=== PATIENT | male | born 1960 | race Caucasian/White ===

== ENCOUNTER 2017-04-15 18:39 | Emergency (ER) | payer OTHER ==
[~2017-04-15] VITALS: Ht 167.6 cm; Wt 68.0 kg
[2017-04-15 18:49] VITALS: BP 165/86
[2017-04-15] MEDS ORDERED: RIOC2.5T PO (18:55)
[2017-04-15] MEDS ORDERED: AMBR5TAB PO (18:55)
[2017-04-15] MEDS ORDERED: IBUPROFEN 800 MG TAB ONE (19:03)
--- NOTE | 2017-04-15 21:30 | NUR ---
PATIENT LEFT WITHOUT BEING SEEN BY DR. Olivares. NO FURTHER CARE PROVIDED FOR PATIENT.
== END 2017-04-15 21:30 | disposition left against medical advice (07) ==
LOC: MED 18:39
DX: R11.10 Vomiting, unspecified (principal); Z53.21 Procedure and treatment not carried out due to patient leaving prior to being seen by health care provider

== ENCOUNTER 2019-01-11 00:58 | Inpatient (IN) | payer OTHER ==
[2019-01-11] VITALS (79 sets, daily range): BP systolic 101–159; BP diastolic 35–105
[~2019-01-11] VITALS: Ht 167.6 cm; Wt 67.6 kg
[~2019-01-11 00:58] MED LIST: AMBR5TAB PO; RIOC2.5T PO
--- NOTE | 2019-01-11 01:00 | NUR ---
PT ROSIE BLS. TAKEN TO BED 3
--- NOTE | 2019-01-11 01:17 | NUR ---
PT BIBA FOR SOB AND DIFFICULTY BREATHING S/P EATING CHICKEN SANDWHICH AT HOME. PT STATES HE FEELS LIKE SOMETHING IS STUCK IN HIS THROAT. PT COUGHING UP CLEAR SPUTUM. HAS PAIN TO THROAT. PT ABLE TO SPEAK FULL SENTENCES, NO EDEMA IN MOUTH OR THROAT. NO FOREIGN BODY NOTED. NO STRIDOR NOTED. PT 97%RA.
--- NOTE | 2019-01-11 01:29 | NUR ---
Dr. Valentino examining patient.
[2019-01-11] MEDS ORDERED: NACL 0.9% 1,000 ML IV ONE (01:31)
[2019-01-11] MEDS ORDERED: ONDANSETRON 4 MG/2 ML VIAL IVP ONE (01:35)
[2019-01-11] MEDS ORDERED: DEXAMETHASONE 10 MG/ML VIAL IM ONE (01:35)
[2019-01-11] MEDS ORDERED: LORazepam 2 MG/ML VIAL IVP ONE (01:35)
[2019-01-11 02:04] LABS: EOSINOPHILS # (AUTO) 0.1 K/uL (0-0.4); EOSINOPHILS % (AUTO) 2.6 % (0.0-4.0); HEMATOCRIT 39.3 % (36-52); HEMOGLOBIN 12.9 g/dL (12.0-18.0); LYMPHOCYTES % (AUTO) 24.8 % (20.5-51.1); MEAN CORPUSCULAR HEMOGLOBIN 35 pg (27-31); MEAN CORPUSCULAR HGB CONC 33 g/dL (33-37); MEAN CORPUSCULAR VOLUME 105.7 fL (80-94); MONOCYTES # (AUTO) 0.5 K/uL (0.8-1.0); MONOCYTES % (AUTO) 12.9 % (1.7-9.3); NEUTROPHILS # (AUTO) 2.4 K/uL (1.8-7.7); NEUTROPHILS % (AUTO) 58.7 % (42.2-75.2); PLATELET COUNT (AUTO) 129 K/uL (140-450); RED BLOOD CELL COUNT(AUTO) 3.71 MIL/uL (4.20-6.10); RED CELL DISTRIBUTION WIDTH 14.4 % (11.6-13.7); WHITE BLOOD COUNT (AUTO) 4.1 K/uL (4.8-10.8)
[2019-01-11 02:16] LABS: ANION GAP 13.2 (8-16); CARBON DIOXIDE 24.8 mmol/L (21-32); CREATININE 1.2 mg/dL (0.7-1.3)
--- NOTE | 2019-01-11 02:19 | NUR ---
pt moved to bed #10
[2019-01-11] MEDS ORDERED: methylPREDNISolone SS 125 MG in WATER STERILE 2 ML IV ONE (02:20)
[2019-01-11] MEDS ORDERED: EPINEPHrine 1:1000 - 1 MG/ML AMP SUBQ ONE (02:20)
[2019-01-11 02:21] LABS: ALBUMIN 3.5 g/dL (3.4-5.0); TOTAL BILIRUBIN 2.3 mg/dL (0.0-1.0)
--- NOTE | 2019-01-11 02:31 | NUR ---
Respiratory Therapist at bedside for respiratory intervention.
--- NOTE | 2019-01-11 02:38 | NUR ---
DR. LUCAS AT PT BEDSIDE ORDERED FOR INTUBATION, PT AWAKE, RR LABORED, PT GIVEN ETOMIDATE 20MG IVP AT THIS TIME. VS FOLLOWS: BP 144/90, P 92, R 23, T 97.0, O2SAT 84% NON-REBREATHER MASK. WILL CONTINUE TO MONITOR CLOSELY.
--- NOTE | 2019-01-11 02:40 | NUR ---
DR. LUCAS AT BEDSIDE ORDERED FOR SUCCINYLCHOLINE 200MG IVP TO BE GIVEN AT THIS TIME.
[2019-01-11] MEDS ORDERED: PROPOFOL 1000 MG/100 ML PREMIX 100 ML IV ONE ×2 (02:46→02:55)
[2019-01-11] MEDS ORDERED: fentaNYL 0.05 MG/ML VIAL ONE ×3 (02:47→11:29)
[2019-01-11] MEDS ORDERED: fentaNYL 0.05 MG/ML VIAL IVP ONE (02:55)
--- NOTE | 2019-01-11 02:55 | NUR ---
PT MOVING, ATTEMPTING TO GRAB ET, IV TUBES. EDMD WITH ORDERS FOR PROPOFOL STARTED AT 5MCG. PT VS FOLLOWS: BP 167/102, P 92, R 14, T 97.3, O2SAST 89%. ET CONNECTED TO VENT, WILL CONTINUE TO MONITOR CLOSELY.
--- NOTE | 2019-01-11 02:56 | NUR ---
0245 INTUBATED PATIENT WITH SIZE 8.0 TUBE AT 23 LIP LINE. PLACED ON VENTILATOR ON SETTINGS OF AC 14 VT 450 PEEP 5 FIO2 100%.
--- NOTE | 2019-01-11 03:33 | NUR ---
INSERTED 16 FR GUZMÁN CATHETER. PT TOLERATED PROCEDURE WELL. GOT 250 ML URINE RETURN.
[2019-01-11 03:36] LABS: PROTHROMBIN TIME 10.7 secs (10.8-13.4)
[2019-01-11] MEDS ORDERED: LORazepam 2 MG/ML VIAL ONE (03:38)
--- NOTE | 2019-01-11 03:44 | NUR ---
PT TAKEN TO CT
--- NOTE | 2019-01-11 03:55 | NUR ---
-0305 PT STILL TRYING TO MOVE HANDS AND BLE, PROPOFOL TITRATED TO 7MCG/HR AT THIS TIME. -0325 PT ANXIOUS ATTEMPTING TO TOUCH ET, PROPOFOL TITRATED TO 10MCG/HR. -0330 PROPOFOL TITRATED TO 12MCG/HR PT STILL MOVING BOTH HANDS/BLE -0335 PROPOFOL TITRATED TO 15MGC/HR PT NEED CT SCAN WITH CONTRAST PER MD ORDER, -0340 DR. LUCAS GAVE 30MG BOLUS PROPOFOL AND ORDERED FOR ATIVAN 2MG IVP VS AT FOLLOWS, BP 141/92, P 98, R 23, T 97.3 O2SAT 89%. PT PREP FOR CT, MONITORED CLOSELY. -[address] PROPOFOL TITRATED TO 20MCG AT THIS TIME. PT ATTEMPTING TO MOVE IV TUBES, RT AT BEDSIDE, PT VS FOLLOWS BP 144/98, P 98, R 23, 02SAT 90%, WILL CONTINUE TO MONITOR CLOSELY. -0355 PROPOFOL TITRATED TO 22MCG AT THIS TIME. PT MOVING ALL EXTREMITIES ATTEMPTING TO TOUCH ET, MONITORED CLOSELY.
--- NOTE | 2019-01-11 04:12 | NUR ---
PT RETURN FROM CT
--- NOTE | 2019-01-11 04:20 | NUR ---
TRANSPORTED PATIENT TO CT WITHOUT INCIDENT AT 0320. BAGGED WITH 100% OXYGEN. WILL CONTINUE TO MONITOR.
[2019-01-11] MEDS ORDERED: FURO40TA9 PO (04:27)
--- NOTE | 2019-01-11 04:30 | NUR ---
PT RESTING IN BED, RESPONSIVE TO TACTILE STIMULI, RR EVEN UNLABORED, VS FOLLOWS: T 97.4, P 104, R 23, BP 144/98, O2SAT 90%. WILL CONTINUE TO MONITOR CLOSELY.
[2019-01-11] MEDS ORDERED: CLINDAMYCIN 600 MG in DEXTROSE 5% 50 ML IV ONE (06:00)
--- NOTE | 2019-01-11 06:09 | NUR ---
PT FAMILY CONTACT INFORMATION IS [phone]
[2019-01-11] MEDS ORDERED: CLINDAMYCIN 600 MG/4 ML VIAL ONE (06:10)
[2019-01-11] MEDS ORDERED: cefTRIAXone 1,000 MG VIAL ONE (06:10)
--- NOTE | 2019-01-11 06:10 | NUR ---
REC'D PT ON CARESCAPE VENT SETTINGS AC 14 VT 450 PEEP 5 FIO2 100% ALARMS ON AND AUDIBLE AND AMBU BAG AT HOB, B\S ARE DIMINISHED BILATERALLY, SXN PT LARGE AMT OF BLOODY SECRETIONS CHANGED HMMichelle AND LANE PT IS ORALLY INTUBATED WITH 8.0 ET TUBE SECURED WITH ANCHOR FAST AT 23 CM PT IS SEDATED AND AT 0635 PT MOVED TO ICU 2 AND PLACED BACK ON VENT
--- NOTE | 2019-01-11 06:35 | NUR ---
PATIENT TRANSFERRED TO ICU 2 VIA GURNEY WITHOUT INCIDENTS.
[2019-01-11] MEDS ORDERED: POTASSIUM CHLORIDE 40 MEQ, LIDOCAINE 1% 25 MG in NACL 0.9% 250 ML IV PRN (06:40)
[2019-01-11] MEDS ORDERED: MAGNESIUM OXIDE 400 MG TAB PO PRN (06:40)
[2019-01-11] MEDS ORDERED: ALUMINUM HYD/MAG/SIMETHICONE 30 ML UDC PO PRN (06:40)
[2019-01-11] MEDS ORDERED: cloNIDine 0.1 MG TAB PO PRN (06:40)
[2019-01-11] MEDS ORDERED: guaiFENesin DM 200/20 MG-10 ML 10 ML UDC PO PRN (06:40)
[2019-01-11] MEDS ORDERED: HYDROcodone/APAP 5/325 MG 1 TAB TAB PO PRN ×2 (06:40)
[2019-01-11] MEDS ORDERED: DOCUSATE SODIUM 250 MG GELCAP PO PRN (06:40)
[2019-01-11] MEDS ORDERED: BISACODYL 10 MG SUPP RC PRN (06:40)
[2019-01-11] MEDS ORDERED: MORPHINE SULFATE 2 MG/ML SYR IVP PRN (06:40)
[2019-01-11] MEDS ORDERED: ACETAMINOPHEN 325 MG TAB PO PRN (06:40)
[2019-01-11] MEDS ORDERED: ONDANSETRON 4 MG/2 ML VIAL IVP PRN (06:40)
[2019-01-11] MEDS ORDERED: POTASSIUM CHLORIDE 10 MEQ TABER PO PRN (06:40)
[2019-01-11] MEDS ORDERED: ACETAMINOPHEN 650 MG SUPP RC PRN (06:40)
[2019-01-11] MEDS ORDERED: SODIUM PHOSPHATE 118 ML ENEM RC PRN (06:40)
[2019-01-11] MEDS ORDERED: LORazepam 2 MG/ML VIAL IVP PRN (06:40)
[2019-01-11] MEDS ORDERED: MAG SULF 2000 MG/WATER PREMIX 50 ML IV PRN (06:40)
[2019-01-11] MEDS ORDERED: diphenhydrAMINE 50 MG/ML VIAL IVP PRN (06:40)
--- NOTE | 2019-01-11 06:42 | NUR ---
RECEIVED REPORT FROM ER NURSE FOR CONTINUITY OF CARE, WILL ENDORSE TO AM NURSE. PATIENT ETT TO VENT.
[2019-01-11] MEDS: PROPOFOL 1000 MG/100 ML PREMIX 100 ML IV PRN ×3 (06:45→19:31)
--- NOTE | 2019-01-11 06:50 | NUR ---
PATIENT ADMITTED TO ICU BED 2 UNDER THE CARE OF DR. NGUYEN, BELONGINGS LIST COMPLETED, PT TRANSFERRED TO ICU VIA GURNEY, WITH RN, RT AND EMT PRESENT. BEDSIDE REPORT GIVEN TO OCTAVIANO BRISCOE.
[2019-01-11] MEDS: NACL 0.9% 1,000 ML IV SCH (06:52)
--- NOTE | 2019-01-11 07:15 | NUR ---
RECEIVED BEDSIDE REPORT FROM PIPE SMOKING MACHINE OPERATOR NURSE, PT IS SEDATED, RASS -3, UNABLE TO FOLLOW COMMANDS, VSS, FLACC 0. NO S/S OF DISTRESS, ETT TO VENT WITH AC SETTING FIO2 100, VT 450, R 14, PEEP 5, CLEAR LUNG SOUNDS ARELY, O2 SAT 96%, SR TO ST ON MATH PROFESSOR, CAP REFILL <2 SEC, SOFT ROUND ABDOMEN WITH ACTIVE BOWEL SOUNDS, GUZMÁN CATHETER IN PLACE WITH CLEAR YELLOW URINE VIA GRAVITY, ABLE TO MOVE ALL EXTREMITAS, TRYING TO PULL OUT TUBES SOMETIMES, SKIN IS WARM AND DRY TO TOUCH, IV SITE TO RIGHT AC 18GA, PATENT, RUNNING PROPOFOL AT 22 MCG/KG/MIN, IV TO LEFT FOREARM 20GA, PATENT RUNNING NS AT 50 ML/HR, HOB ELEVATED, SAFETY MEASURES IN PLACE, WILL CONTINUE TO MONITOR. Addendum: 01/11/19 at 1219 by Connor Mancini RN DRY WEIGHT USING FOR PROPOFOL DRIP IS 69 KG ON PUMP.
[2019-01-11] MEDS: IPRATROPIUM 0.02% 0.5 MG/2.5 ML NEBU INH PRN (07:28)
[2019-01-11] MEDS: ALBUTEROL 0.083% 2.5 MG/3 ML NEBU INH PRN (07:29)
--- NOTE | 2019-01-11 07:45 | NUR ---
ORAL CARE PROVIDED, POSITION CHANGED FOR OFF LOAD PRESSURE.
--- NOTE | 2019-01-11 07:55 | NUR ---
PT'S AND FATHER CAME IN TO SEE PATIENT, MEDICAL HISTORY OBTAINED FROM FAMILY MEMBERS.
--- NOTE | 2019-01-11 08:00 | NUR ---
PATIENT IS AWAKE, TRYING TO PULL OUT TUBES, SOFT RESTRAIN PLACED PER DR. WARE ORDER FOR SAFETY. EXPLAINED AND EDUCATED FAMILY MEMBERS.
--- NOTE | 2019-01-11 08:20 | NUR ---
PATIENT HAS BEEN SCREENED AND CATEGORIZED HIGH NUTRITION RISK. PATIENT WILL BE SEEN WITHIN 1-2 DAYS OF ADMISSION. 01/11/19-01/12/[address]
--- NOTE | 2019-01-11 08:30 | NUR ---
DR. WARE CAME IN TO SEE PATIENT AT BEDSIDE, SPOKE TO PT'S FAMILY AT BEDSIDE, WILL DO STAT BRONCHOSCOPY AT BEDSIDE, RT NOTIFIED.
[2019-01-11] MEDS ORDERED: VITAMIN E 200 IU CAPLF PO SCH (09:00)
--- NOTE | 2019-01-11 09:00 | NUR ---
DR. WARE AT BEDSIDE TO BRONCHOSCOPY THE PT, COLLECTED SPUTUM SAMPLE AND SENT TO LAB
--- NOTE | 2019-01-11 09:10 | NUR ---
TIME OUT FOR BRONCHOSCOPY, DR. WARE AND RT AT BEDSIDE DOING THE PROCEDURE.
--- NOTE | 2019-01-11 09:20 | NUR ---
SCHEDULED MEDICATION GIVEN, PT TOLERATED WELL.
[2019-01-11] MEDS: PANTOPRAZOLE 40 MG INJ VIAL IVP SCH (09:25)
[2019-01-11] MEDS: FUROSEMIDE 20 MG/2 ML VIAL IVP SCH ×2 (09:25→20:39)
--- NOTE | 2019-01-11 09:30 | NUR ---
DR. WARE CLARIFIED NO NEED FOR PICC LINE OR CENTRAL LINE AT THIS TIME, OK TO PUT NGT/OGT, BUT NPO EXCEPT MEDS, NO NEED TUBE FEEDING AT THIS TIME, CONSULT GI FOR EGD.
--- NOTE | 2019-01-11 10:00 | NUR ---
NO CHANGE OF CONDITION, VSS, FLACC 0, NO S/S OF DISTRESS, POSITION CHANGED FOR OFF LOAD PRESSURE.
[2019-01-11] MEDS ORDERED: MIDAZOLAM 2 MG/2 ML VIAL ONE (11:30)
[2019-01-11] MEDS ORDERED: diphenhydrAMINE 50 MG/ML VIAL ONE (11:30)
--- NOTE | 2019-01-11 12:00 | NUR ---
DR. THOMAS AND SURGERY TEAM AT BEDSIDE DOING EGD.
--- NOTE | 2019-01-11 12:15 | NUR ---
NO S/S OF DISTRESS, VSS, FLACC 0, ORAL CARE PROVIDED, POSITION CHANGED FOR OFF LOAD PRESSURE.
--- NOTE | 2019-01-11 12:30 | NUR ---
PT IS AGITATED WHEN TRYING TO INSERT NGT, PER DR. WARE OK TO NOT INSERT NGT MAY BE EXTUBATED LATER.
--- NOTE | 2019-01-11 13:00 | NUR ---
DECREASED FIO2 TO 50%
--- NOTE | 2019-01-11 14:00 | NUR ---
O2 SAT DROP TO 89%, RT NOTIFIED, POSITION CHANGED FOR OFF LOAD PRESSURE.
[2019-01-11 14:31] LABS: APPEARANCE,URINE CLEAR (CLEAR); BILIRUBIN,URINE NEGATIVE (NEGATIVE); BLOOD, URINE 3+ (NEGATIVE); COLOR,URINE OTHER (YELLOW); LEUKOCYTE ESTERASE ,URINE NEGATIVE (NEGATIVE); NITRITE, URINE NEGATIVE (NEGATIVE); PH,URINE 5.5 (5.0-9.0); UGLUCOSE NEGATIVE (NEGATIVE)
[2019-01-11 14:40] LABS: RBC,URINE 11-20 (MOD) /HPF (0-5); WBC,URINE NONE SEEN /HPF (0-5); YEAST,URINE None Seen /HPF (None Seen)
--- NOTE | 2019-01-11 14:53 | NUR ---
increased fio2 to 70% due to low o2 sat of 85% mike leon notified
--- NOTE | 2019-01-11 15:11 | NUR ---
01/11/19 RD INITIAL ASSESSMENT COMPLETED PLEASE REFER TO NUTRITION ASSESSMENT UNDER CARE ACTIVITY FOR ESTIMATED NUTRITIONAL NEEDS. 1. CONTINUE NPO MEDICALLY NECESSARY 2. RECOMMEND SWALLOW EVALUATION WHEN PATIENT IS MEDICALLY STABLE TO ADVANCE TO PO DIET 3. IF PATIENT IS NOT MEDICALLY STABLE TO ADVANCE TO PO DIET, CONSIDER TUBE FEEDING WITH JEVITY @65 ML/HR AND PROSOURCE ONCE DAILY. FREE WATER FLUSH [address] TO FOLLOW-UP 2-3 DAYS, HIGH RISK CHANDRIKA COLLIER RD
--- NOTE | 2019-01-11 16:00 | NUR ---
PM CARE AND ORAL CARE PROVIDED, GUZMÁN CATHETER PROVIDED, NO S/S OF DISTRESS, VSS, FLACC 0, POSITION CHANGED FOR OFF LOAD PRESSURE.
--- NOTE | 2019-01-11 17:15 | NUR ---
DR. GALVAN CAME IN TO SEE PATIENT AT BEDSIDE, WILL FOLLOW UP WITH NEW ORDERS. Addendum: 01/11/19 at 1722 by Connor Mancini RN WRONG PATIENT
--- NOTE | 2019-01-11 18:00 | NUR ---
ON FIO2 60% AT THIS TIME, NO S/S OF DISTRESS, VSS, FLACC 0, SCD PLACED ORDERED, POSITION CHANGED FOR OFF LOAD PRESSURE.
--- NOTE | 2019-01-11 19:15 | NUR ---
REPORT GIVEN BY DAY SHIFT NURSE AT BEDSIDE. PATIENT LYING IN BED ETT TO VENT SIZE 8. 24 AT LIP. SEDATED ON PROPOFOL 25 MCG VIA PERIPHERAL RIGHT AC 20 G. IVF NACL 0.9% RUNNING IN LEFT FA 20 G. DRY WEIGHT 69 KG. PATIENT RASS -3. DAY NURSE STATES MD WANTS TO EXTUBATE SO NO NEED FOR ng TUBE. NO PO MEDS ORDERED AND NO NUTRITION ORDERED VIA NG TUBE. DAY NURSE ALSO STATES MD DOES NOT WANT PICC OR CENTRAL LINE DUE TO WANTING TO EXTUBATE (CHAZ). PATIENT HAS SCDS IN PLACE. GUZMÁN CATHETER IN PLACE WITH YELLOW URINE RUNNING IN DRAINAGE BAG. PATIENT ON SOFT WRIST RESTRAINTS AT THIS TIME. FIO2 60-VT 450-RR 14-FLOW 45- PEEP 5- PMAX 50 AT THIS TIME. IV SITES ASYMPT OF INFECTION AND INTACT AT THIS TIME. NPO EXCEPT MEDS. PERRL BOTH EYES BILATERALLY. HR REGULAR. LUNG SOUNDS CLEAR. RESPIRATIONS EVEN AND UNLABORED. SKIN INTACT. RT AT BEDSIDE. PATIENT SEDATED/ NO SOB NOTED. VSS. WILL CONTINUE TO MONITOR.
--- NOTE | 2019-01-11 19:30 | NUR ---
REPORT GIVEN TO STAFF COMBAT INFORMATION CENTER OFFICER NURSE AT BEDSIDE FOR CONTINUE OF CARE.
--- NOTE | 2019-01-11 19:39 | NUR ---
Received pt stable on vent support at documented settings, suctioned scant amount of thin clear white secretions, no resp distress or SOB noted at this time, found 8.0 ETT secured at 24 cm at the lip, alarms set and audible, ambu bag at bedside, vent plugged into red outlet, cont pulse ox on, ventilator wiped down, will cont to monitor.
--- NOTE | 2019-01-11 22:22 | NUR ---
CHARGE NURSE AND NURSE AT PATIENT BEDSIDE. CHANGE IN PROPOFOL. SEE IV SPREAD SHEET
[2019-01-12] VITALS (54 sets, daily range): BP systolic 99–139; BP diastolic 52–87
--- NOTE | 2019-01-12 | NUR ---
VAP ORAL CARE PROVIDED. PATIENT REPOSITIONED. NO SOB O S/S OF RESP DISTRESS. WILL CONTINUE TO MONITOR
--- NOTE | 2019-01-12 01:18 | NUR ---
md tisha louise AT PATIENTS BEDSIDE. STATES NEEDS HIS AT HOME MEDICATIONS TO BE BROUGHT BY FAMILY AND AT LEAST ONE DOSE GIVEN TO PATIENT BEFORE HE IS EXTUBATED. AMBRSENTAN 5MG DAILY AND RIOCIGUAT 2.5 MG PO TID. STATES MAY USE AT HOME MEDICATIONS. MD AT PATIENT BEDSIDE.
[2019-01-12] MEDS: NACL 0.9% 1,000 ML IV SCH ×2 (02:08→20:57)
[2019-01-12] MEDS: PROPOFOL 1000 MG/100 ML PREMIX 100 ML IV PRN ×2 (02:17→08:50)
--- NOTE | 2019-01-12 03:34 | NUR ---
VAP ORAL CARE PROVIDED. PATIENT TOLERATED WELL. NO S/S OF RESP DISTRESS NOTED. WILL CONTINUE TO MONITOR
--- NOTE | 2019-01-12 04:56 | NUR ---
MORNING CARE PROVIDED WITH NURSE, CHARGE NURSE AND MANUFACTURING MILLWRIGHT. CATHETER CARE, ORAL CARE AND REPOSITIONING CARE PROVIDED. INTACT SKIN. NO INCIDENTS. WILL CONTINUE TO MONITOR. TOLERATED WELL.
--- NOTE | 2019-01-12 05:58 | NUR ---
FAMILY CALLED BY CHARGE NURSE IN REGARDS TO BRINGING PATIENTS AT HOME MEDICATION. LEFT MESSAGE.
--- NOTE | 2019-01-12 06:30 | NUR ---
phone call to torsten cooper/kamlesh cooper regarding medication, no answer, left message to call health science writer. awaiting reply
[2019-01-12 06:44] LABS: ALBUMIN 3.1 g/dL (3.4-5.0); ANION GAP 12.7 (8-16); CARBON DIOXIDE 24.7 mmol/L (21-32); CREATININE 1.3 mg/dL (0.7-1.3); POTASSIUM 4.4 mmol/L (3.5-5.1); TOTAL BILIRUBIN 1.4 mg/dL (0.0-1.0)
[2019-01-12 07:11] LABS: BASOPHILS % (AUTO) 0.1 % (0.0-2.0); HEMOGLOBIN 13.3 g/dL (12.0-18.0); LYMPHOCYTES # (AUTO) 0.9 K/uL (2.0-11.5); LYMPHOCYTES % (AUTO) 11.1 % (20.5-51.1); MEAN CORPUSCULAR HEMOGLOBIN 36 pg (27-31); MEAN CORPUSCULAR HGB CONC 33 g/dL (33-37); MONOCYTES # (AUTO) 0.8 K/uL (0.8-1.0); MONOCYTES % (AUTO) 10.2 % (1.7-9.3); NEUTROPHILS # (AUTO) 6.2 K/uL (1.8-7.7); NEUTROPHILS % (AUTO) 78.6 % (42.2-75.2); PLATELET COUNT (AUTO) 169 K/uL (140-450); RED BLOOD CELL COUNT(AUTO) 3.74 MIL/uL (4.20-6.10); RED CELL DISTRIBUTION WIDTH 14.8 % (11.6-13.7); WHITE BLOOD COUNT (AUTO) 7.8 K/uL (4.8-10.8)
--- NOTE | 2019-01-12 07:13 | NUR ---
RECEIVED ON A [employer]uataSCAPE R860 VENTILATOR PLUGGED INTO RED OUTLET TOLERATING WELL WITHOUT ADVERSE REACTIOSN NOTED TO AN ENDOTRACHEAL TUBE #8.0 SECURED AT 23cm TEETH/GUM LINE WITH ANCHOR FAST CUFF PRESSURE CHECKED NOTED LOC SEDATED EQUAL CHEST RISE BREATH SOUNDS CLEAR WITH GOOD AERATION THROUGHOUT BILATERAL PULMONARY ARMSTRONG AIRWAY PATENT
--- NOTE | 2019-01-12 07:15 | NUR ---
RECEIVED BEDSIDE REPORT FROM CUSTOMER SERVICE SUPERVISOR OCTAVIANO AGUILA. PATIENT IN BED ETT TO VENT SIZE 8, 24CM AT TEETH. IV CATH NOTED TO LEFT FA 20G RUNNING NS AT 50ML/HR AND RIGHT AC 18G RUNNING PROPOFOL AT 30MCG/KG/MIN, DRY WEIGHT 69 KG. BOTH IV CATH ARE PATENT AND ASYMPTOMATIC WITH GOOD BLOOD RETURN. RASS -3. SCDS IN PLACE. GUZMÁN CATHETER IN PLACE DRAINING CLEAR YELLOW URINE. PT ON SOFT WRIST RESTRAINTS AT THIS TIME, NO SIGNS OF INJURY. LUNG SOUNDS CLEAR. RESPIRATIONS EVEN AND UNLABORED. SKIN INTACT. BOWEL SOUNDS ACTIVE. WILL CONTINUE TO MONITOR.
[2019-01-12] MEDS ORDERED: POTA10TE30 PO (07:49)
[2019-01-12] MEDS: PANTOPRAZOLE 40 MG INJ VIAL IVP SCH (08:25)
[2019-01-12] MEDS: FUROSEMIDE 20 MG/2 ML VIAL IVP SCH ×2 (08:28→20:52)
[2019-01-12] MEDS: LETAIRIS 5 MG PO SCH (09:00)
[2019-01-12] MEDS ORDERED: COMMUNICATION ORDER MC SCH (09:00)
--- NOTE | 2019-01-12 09:00 | NUR ---
WONDERING IF CAN GIVE PO MED VIA NGT. CALLED [facility], WHO SAID LETAIRIS IS NOT CRUSHABLE.
--- NOTE | 2019-01-12 09:03 | NUR ---
PAGED DR SAROJ WARE, REGARDING HOW HE WANTS THE PT TO TAKE HIS PO MEDS SINCE PT IS INTUBATED AND LETAIRIS SHOULD NOT BE CRUSHED. WAITING FOR BACK.
--- NOTE | 2019-01-12 09:05 | NUR ---
SEDATED RESTING COMFORTABLY NO EVIDECNE OF PULMONARY DISTRESS NOTED GOOD CHEST RISE AIRWAY PATENT Addendum: 01/12/19 at 0920 by Odin France RT SATURATION 95% ON FIO2 OF 30% TITRATED FIO2 TO 28% PRUDENCE/RN NOTIFIED Addendum: 01/12/19 at 1019 by Odin France RT EVIDECNE=EVIDENCE
--- NOTE | 2019-01-12 09:28 | NUR ---
PAGED DR WARE SECOND TIME.
--- NOTE | 2019-01-12 09:36 | NUR ---
DR WARE CALLED BACK, SAID TO PUT NGT AND ONLY GIVE THE ADEMPAS, THEN START WEANING 1 HR LATER. Addendum: 01/12/19 at 1025 by Alexander Petit RN DR WARE SAID IF PT TOLERATED, EXTUBATED TODAY. ALSO ASKED DR WARE AFTER EXTUBATION, IF SWALLOW EVAL IS NEEDED FOR TOMORROW. DR WARE SAID NO, WHY WAIT FOR TOMORROW. TOLD DR WARE WILL DO BEDSIDE SWALLOW EVAL TODAY AND TRY TO GET ST TO COME TODAY.
[2019-01-12] MEDS: RIOCIGUAT 2.5 MG PO SCH ×3 (09:49→17:41)
--- NOTE | 2019-01-12 10:02 | NUR ---
OFF PROPOFOL SEDATION AT THIS TIME APPROPRIATE FOR WEANING NO RESPIRATORY DISTRESS NOTED EQUAL CHEST RISE PLACED ON SBT/WEANING TRIAL SET FOR 2 HOURS PATIENT UNABLE TO FOLLOW COMMANDS AT THIS TIME FOR WEANING PARAMETERS PRUDENCE/RN AWARE
--- NOTE | 2019-01-12 10:02 | NUR ---
RT BLOOM STARTED CPAP TRIAL. TURNED OFF PROPOFOL.
--- NOTE | 2019-01-12 10:40 | NUR ---
PT OPENING HIS EYES, MAKING EYE CONTACT, PT APPEARS TO BE A LITTLE AGITATED. PROVIDED PT WITH PAPER AND PEN. PT WROTE HOME, OUT. ORIENTED PT AND EXPLAINED TO HIM ABOUT THE CURRENT SITUATION. ASKED PT NOT TO PULL TUBES OUT HIMSELF IT MIGHT CAUSE INJURY. PT NODDED.
--- NOTE | 2019-01-12 10:45 | NUR ---
REORIENTED PT AGAIN.
--- NOTE | 2019-01-12 10:55 | NUR ---
PT HAS HIS EYES CLOSED. NO SIGNS OF DISTRESS.
--- NOTE | 2019-01-12 11:01 | NUR ---
SATURATION 89%-90% ON FIO2 OF 28% INCREASED FIO2 TO 30% TO KEEP SATURATION GREATER THAN 90%
--- NOTE | 2019-01-12 11:10 | NUR ---
PT GOT AGITATED, TRYING TO SIT UP AND REMOVE TUBE. REORIENTED PT AND SUCTIONED PT ORALLY. PT IS FIGHTING THE VENT AND WENT BACK TO AC MODE. CALLED RT MERLE AND MADE HIM AWARE, WILL SWITCH BACK TO CPAP TRIAL.
--- NOTE | 2019-01-12 11:45 | NUR ---
[facility], SAID SHE CAN'T DO IT TODAY BECAUSE IT NEEDS TO BE DONE 24HRS AFTER EXTUBATION. SHE WILL HAVE HER COLLEAGUE TO DO IT TOMORROW.
--- NOTE | 2019-01-12 11:49 | NUR ---
TOLERATING SBT/WEANING TRIAL WELL WITHOUT SOB NOTED GOOD CHEST RISE PATIENT ABLE TO WAKE TO PARTICIPATE IN WEANING TRIAL TITRATED PS TO 8 cmH2O Addendum: 01/12/19 at 1159 by Odin France RT SpvVT GREATER THAN 8 CC/KG
--- NOTE | 2019-01-12 12:08 | NUR ---
TOLERATED SBT/WEANING TRIAL X 2 HOURS NO RESPIRATORY DISTRESS NOTED GOOD CHEST RISE AIRWAY PATENT
--- NOTE | 2019-01-12 12:16 | NUR ---
PHOTONICS TECHNICIAN note 12:15. PHOTONICS TECHNICIAN came to assess pt's appropriateness for bedside swallow evaluation participation; however, pt currently still intubated at this time. PHOTONICS TECHNICIAN d/w RN (Alexander) and charge auditor that pt's risk for SILENT aspiration is the greatest during the first 24 hours following extubation and per PHOTONICS TECHNICIAN protocol, pt will not be assessed until 24 hours following extubation have elapsed. Per RN, pt with pending extubation later today. PHOTONICS TECHNICIAN to f/u after 24 hours following extubation have elapsed, as appropriate.
--- NOTE | 2019-01-12 12:38 | NUR ---
CALL BACK FROM DR. SAROJ WARE REVIEWED SBT/CPAP WEANING TRIAL OUTCOME (IE: SPVT,RATE,WEANING PARAMETERS,CXR) AND ABG SAMPLE REPORT INFORMED MD THAT THE ABG IS A MIXED SAMPLE REPORT SATURATION 85.7% MONITOR 90%-91% NEW ORDERS: EXTUBATE PATIENT; INCENTIVE SPIROMETRY
--- NOTE | 2019-01-12 12:39 | NUR ---
SPOKE WITH DR WARE, ORDERS OBTAINED, DC NGT, [facility] SOFT DIET FOR DINNER.
--- NOTE | 2019-01-12 12:48 | NUR ---
SCREEN FOR LOW CAROL SCALE AT RISK, CONTINUE TO FOLLOW PRESSURE ULCER PREVENTION INTERVENTIONS. -TURN AND REPOSITION PATIENT Q 2H -ASSESS AND MONITOR SKIN CONDITION DURING POSITION CHANGE -OFFLOAD BILATERAL HEELS BY PLACING PILLOWS UNDER CALVES AT ALL TIMES, UNLESS OTHERWISE CONTRAINDICATED -PRESSURE REDISTRIBUTION BY PLACING PILLOWS AND OFFLOADING SACRALCOCCYX -KEEP SKIN CLEAN AND DRY AT ALL TIMES.
--- NOTE | 2019-01-12 12:59 | NUR ---
EXTUBATION PATIENT PLACED ON SUPPLEMENTAL OXYGEN VIA COOL AEROSOL AT 30% TO MASK TO PREVENT LARYNGEAL SWELLING PRUDENCE/RN AT BEDSIDE
--- NOTE | 2019-01-12 13:30 | NUR ---
NGT WAS DC'D. PT TOLERATED WELL. PT SAID HE WANTS BEER AND GO HOME. EXPLAINED TO PT THAT HE NEEDS TO STAY FOR TONIGHT UNTIL DR WARE SEES HIM, SO HE CAN BE DISCHARGED. IF HE LEAVES BY HIMSELF, THERE MIGHT BE LIFE THREATENING CONSEQUENCE. PT WENT BACK TO SLEEP.
--- NOTE | 2019-01-12 14:45 | NUR ---
PT DESATING TO 85%, WOKE PT UP AND CALLED RT, MERLE SAID TO TURNED FIO2 TO 40%. ADJUST AEROSOL TO 40%. ASKED PT TO COUGH AND CLEAR THROAT. PT FOLLOWED COMMANDS. O2 SAT WENT BACK TO 88%-90%.
--- NOTE | 2019-01-12 15:00 | NUR ---
PT WANTS TO GO HOME AGAIN. OFFERED ICE CREAM. BEDSIDE SWALLOW EVAL DONE BY NURSE. PT WAS ABLE TO SWALLOW WELL, NO COUGH OR CHOKING SEEN.
--- NOTE | 2019-01-12 15:10 | NUR ---
PT'S DAD, JEREMY, CAME AND TALKED TO PT ABOUT STAYING FOR TONIGHT. PT AGREED. ASKED JEREMY IF PT STILL SMOKE. JEREMY SAID YES, BUT NOT MUCH BEFORE. PT WENT BACK TO SLEEP. NO DISTRESS AT THIS TIME. O2 SAT 89%-90%.
--- NOTE | 2019-01-12 15:24 | NUR ---
O2 SAT 93%, LOWERED AEROSOL MASK FIO2 TO 30%. PT STILL TOLERATING, O2 SAT 90%.
[2019-01-12] MEDS: IPRATROPIUM 0.02% 0.5 MG/2.5 ML NEBU INH PRN (16:08)
[2019-01-12] MEDS: ALBUTEROL 0.083% 2.5 MG/3 ML NEBU INH PRN (16:08)
--- NOTE | 2019-01-12 16:08 | NUR ---
PATIENT PRESENTING WITH LABORED BREATHING RESPIRATIONS AT 24 BPM BREATH SOUNDS DIFFUSED RHONCHI BILATERAL SATURATION 90% ON SUPPLEMENTAL OXYGEN AT 30%/7 LPM VIA COOL AEROSOL TO MASK HHN PRN THERAPY AND RESPIRATORY DRUGS GIVEN AT THIS TIME ENCOURAGED PATIENT FOR INTERMITTENT DEEP BREATHING AND COUGH OROPHARYNGEAL SUCTION FOR MODERATE THIN PALE YELLOW SECRETIONS
--- NOTE | 2019-01-12 16:22 | NUR ---
Blow Mold Technician Note: I called and spoke with patient's Josef Perry . Per Josef, he has had good communication with attending MD. He does not have any questions nor concerns at this time. I provided him with my contact information.
--- NOTE | 2019-01-12 16:41 | NUR ---
CONTACTED PATIENT'S PCP DR. SOBIA MENDOZA ([facility]) AT [phone], ABLE TO SPEAK TO JOSS REGARDING POST DISCHARGE APPOINTMENT. SHE PROVIDED ME WITH Jan AT 0920 AM. COPY PROVIDED TO THE PATIENT.
[2019-01-12] MEDS ORDERED: CHLORHEXADINE GLUC 2% CLOTH TP SCH (17:00)
[2019-01-12] MEDS ORDERED: MUPIROCIN CA NASAL 2% 1GM TUBE NS SCH (17:00)
--- NOTE | 2019-01-12 17:01 | NUR ---
MRSA NARES POSITIVE, CONTACT ISOLATION PROTOCOL INITIATED.
--- NOTE | 2019-01-12 17:05 | NUR ---
PT SLEEPING, NO S/S OF DISTRESS NOTED. O2 SAT 90%,
--- NOTE | 2019-01-12 17:25 | NUR ---
WOKE PT UP TO EAT DINNER. ASKED PT TO SIT IN THE CHAIR TO EAT AND I CAN CHANGE HIS LINENS AT THE MEAN TIME. PT REFUSED. PT SAID JUST ME THE F TRAY. PT ATE 90% OF THE MEAL INDEPENDENTLY. STANDBY ASSIST PROVIDED. NO SIGN OF COUGH OR DISTRESS.
--- NOTE | 2019-01-12 18:00 | NUR ---
SCHEDULED MEDS HAS BEEN GIVEN, WIPED PT WITH CHLORHEXIDINE WIPES. PT WENT BACK TO SLEEP, PUT AEROSOL MASK BACK ON, FIO2 30%.
--- NOTE | 2019-01-12 19:20 | NUR ---
RECEIVED REPORT FROM AM NURSE, PT IS AT BED, EYES CLOSED, BREATHING REGULARLY, PERRL 3MM, PT IS ON AEROSOL MIST MASK AT 30%, LUNG SOUNDS CLEAR THROUGHOUT, HEART RATE REGULAR, SR ON MONITOR, S1S2 PRESENT, CAP REFILL <3S, PULSES 2+ BILATERAL UPPER AND LOWER EXTREMITIES, PT SKIN INTACT, COLOR APPROPRIATE TO ETHNICITY, WARM, DRY, ABDOMEN, SOFT, ROUND, NONTENDER, BLADDER, SOFT, ROUND, NONTENDER, FC IN PLACE, DRAINING YELLOW URINE, PT HAS GENERALIZED WEAKNESS, HOB AT 30 DEGREES, SIDE RAILS UP X2, BED AT LOWEST POSITION. PT LEFT FA 20 GAUGE, RUNNING NS AT 50 ML/HR, RIGHT AC 18 GAUGE SALINE LOCK.
--- NOTE | 2019-01-12 20:52 | NUR ---
SCHEDULED MEDICATIONS GIVEN. PT AT BED EYES CLOSED, BREATHING REGULARLY, WILL CONTINUE TO MONITOR.
[2019-01-13] VITALS (8 sets, daily range): BP systolic 106–156; BP diastolic 63–96
--- NOTE | 2019-01-13 01:29 | NUR ---
PT AT BED EYES CLOSED, BREATHING REGULARLY ON AEROSOL MIST, MASK, WILL CONTINUE TO MONITOR.
--- NOTE | 2019-01-13 03:27 | NUR ---
PT AT BED EYES CLOSED, BREATHING REGULARLY ON AEROSOL MIST, MASK, WILL CONTINUE TO MONITOR.
--- NOTE | 2019-01-13 04:43 | NUR ---
PT IS RESTLESS AND HAVING ANXIETY. DEMANDS TO GO HOME RIGHT NOW. ADMINISTERED ATIVAN IVP.
--- NOTE | 2019-01-13 07:11 | NUR ---
RCV'D PT ON ROOM AIR WITH SPO2 91-93%. PT IS ASLEEP. PER RN PT DOES NOT WANT TO KEEP OXYGEN MASK ON. NO SOB OR DISTRESS NOTED. WILL CONTINUE TO MONITOR.
--- NOTE | 2019-01-13 07:18 | NUR ---
CHANGE OF SHIFT REPORT GIVEN TO AM NURSE. PT AT STABLE CONDITION AT THIS TIME.
--- NOTE | 2019-01-13 07:30 | NUR ---
RECEIVED BEDSIDE REPORT FROM AIRPLANE DESIGNER RN. PT IS ASLEEP, VSS, FLACC 0, PERRL. AFEBRILE. NORMAL SINUS RHYTHM ON MONITOR. S1 +S2 HEARD. PULSES PALPABLE TO ALL EXTREMITIES. CAP REFILL < 2SEC. PT IS ON ROOM AIR AT THIS TIME. SPO2 92-93%. BREATHING EVEN AND UNLABORED. LUNGS SOUND CLEAR THROUGHOUT. ABDOMEN SOFT, NONDISTENDED, NONTENDER. BOWEL SOUNDS PRESENT X 4 QUADRANTS. PERIPHERAL IV G20 TO LEFT FOREARM PATENT, INTACT, RUNNING IVF NS AT 50 ML/HR. ANOTHER PERIPHERAL IV G18 TO RIGHT ANTECUBITAL ASYMPTOMATIC, PATENT AND INTACT, SALINE LOCKED. GUZMÁN CATH IN PLACE DRAINING CLEAR YELLOW URINE TO GRAVITY DRAINAGE BAG. SKIN IS INTACT, DRY AND WARM TO TOUCH. HOB AT 30 DEGREES. BED IN LOWEST POSITION LOCKED. SIDE RAILS UP X2. CALL LIGHT WITHIN REACH. NO SIGNS OF DISTRESS NOTED AT THIS TIME. SAFETY PRECAUTIONS IN PLACE. WILL CONTINUE TO MONITOR.
[2019-01-13] MEDS: FUROSEMIDE 20 MG/2 ML VIAL IVP SCH (08:09)
[2019-01-13] MEDS: PANTOPRAZOLE 40 MG INJ VIAL IVP SCH (08:09)
[2019-01-13] MEDS: LETAIRIS 5 MG PO SCH (08:10)
[2019-01-13] MEDS: RIOCIGUAT 2.5 MG PO SCH ×2 (08:10→13:00)
--- NOTE | 2019-01-13 08:30 | NUR ---
MEDICATIONS ADMINISTERED ORDERED. PT TOLERATED WELL.
--- NOTE | 2019-01-13 09:44 | NUR ---
SPEECH THERAPIST AT BEDSIDE FOR SWALLOW EVALUATION. VSS. NO SIGNS OF DISTRESS NOTED AT THIS TIME. WILL CONTINUE TO MONITOR.
--- NOTE | 2019-01-13 10:03 | NUR ---
RECEIVED CALL FROM PT'S FATHER, JEREMY. UPDATES GIVEN ON PT'S CONDITION.
--- NOTE | 2019-01-13 10:23 | NUR ---
*S.T. Bedside swallow eval completed* See report for details. Pt presents w/ adequate oropharyngeal swallow function for current diet textures of mechanical soft solids and thin liquids via straw. No overt s/s aspiration observed and pt able to self-feed w/ min assistance for opening packaging and tray set up. Recommend: 1) Continue mechanical soft diet, thin liquids. Straws okay. 2) P.O. meds okay whole, one at a time. 3) Defer to medicine team for dietary restrictions. 4) Nsg to assist w/ tray set up and opening packaging to promote self-feeding. Pt does not demonstrate clinical dysphagia. Therefore, recommend DC to nsg care. No further tx indicated at this time. Endorsed to OCTAVIANO Curtis at bedside. Time [id number]
--- NOTE | 2019-01-13 11:50 | NUR ---
DR. WARE IN TO SEE AND EXAMINE PT. WILL FOLLOW UP ON ORDERS.
[2019-01-13] MEDS ORDERED: RIOCIGUAT 2.5 MG PO SCH (13:00)
--- NOTE | 2019-01-13 13:30 | NUR ---
PT DISCHARGED HOME VIA PRIVATE VEHICLE ACCOMPANIED BY FATHER. PER PHARMACIST, FLU VACCINE NOT IN SEASON OF TODAY. INSTRUCTED PT TO HAVE FLU SHOT AT HIS FOLLOW UP APPOINTMENT SCHEDULED ON 01/17/2019. DISCHARGE INSTRUCTIONS AND EDUCATION GIVEN. PT AND FATHER VERBALIZED UNDERSTANDING. VSS. DENIES PAIN AND NO SIGNS OF DISTRESS NOTED UPON DISCHARGE.
[2019-01-13] MEDS ORDERED: FUROSEMIDE 40 MG TAB PO SCH (17:00)
[2019-01-14] MEDS ORDERED: AMBRISENTAN 5 MG PO SCH (09:00)
--- NOTE | 2019-01-18 06:15 | NUR ---
LATE ENTRY: 1MG OF ATIVAN GIVEN, PER MD ORDER (RX#: [id number]). 1MG WASTED AT [facility], WITNESSED BY JEREMY ZURITA RN.
== END 2019-01-13 13:30 | disposition home or self-care (01) | DRG 133 ==
LOC: MED 00:58 → MIC 06:08
PROVIDERS: ADMIT Internal Medicine Pulmonary Disease; ATTEND Internal Medicine Pulmonary Disease
PROC: 5A1945Z Respiratory Ventilation, 24-96 Consecutive Hours (ICD-10-PCS; 2019-01-11)
PROC: 0DC58ZZ Extirpation of Matter from Esophagus, Via Natural or Artificial Opening Endoscopic (ICD-10-PCS; 2019-01-11)
PROC: 0BH17EZ Insertion of Endotracheal Airway into Trachea, Via Natural or Artificial Opening (ICD-10-PCS; 2019-01-11)
PROC: 0BJ08ZZ Inspection of Tracheobronchial Tree, Via Natural or Artificial Opening Endoscopic (ICD-10-PCS; principal; 2019-01-11 11:30)
DX: J96.21 Acute and chronic respiratory failure with hypoxia (principal); I27.29 Other secondary pulmonary hypertension; I50.810 Right heart failure, unspecified; K70.9 Alcoholic liver disease, unspecified; K22.2 Esophageal obstruction; T18.128A Food in esophagus causing other injury, initial encounter; K74.60 Unspecified cirrhosis of liver; K44.9 Diaphragmatic hernia without obstruction or gangrene; K31.89 Other diseases of stomach and duodenum; X58.XXXA Exposure to other specified factors, initial encounter; Z87.891 Personal history of nicotine dependence; Y93.89 Activity, other specified; Y92.89 Other specified places as the place of occurrence of the external cause; Y99.8 Other external cause status
CPT/HCPCS: 36415; 36600; 71045; 71260; 80053; 81001; 82803; 83605; 83690; 83880; 84484; 85025; 85610; 85730; 87040; 87070; 87081; 87086; 87205; 89220; 92610; 94003; 94640; 96361; 96365; 96372; 96375; 99291; C9113; J0171; J0696; J1100; J1200; J1940; J2060; J2250; J2270; J2405; J2704; J2930; J3010; J3490; J7030; J7060; J7613; J7644; Q0092; Q9967

== ENCOUNTER 2019-12-12 12:21 | Emergency (ER) | payer OTHER ==
[~2019-12-12] VITALS: Ht 175.3 cm; Wt 77.1 kg
[~2019-12-12 12:21] MED LIST changes: +FURO40TA9 PO
--- NOTE | 2019-12-12 12:24 | NUR ---
BIBA TAKEN TO BED 4
[2019-12-12 12:25] VITALS: BP 135/88
--- NOTE | 2019-12-12 12:50 | NUR ---
marycruz from dental office w c/o "tired" x1 day. pt admits to drinking 1 can of mikes hard lemonaid today before going to the dentist, denies use of illicit drugs. both pupils pinpoint but reactive. Pt aox 4 , afibrile , ambulatory with steady gait , pink palpebral conjunctiva , anicteric sclera , sce , flat soft abdomen. hx: pulm. htn rx: lasix
--- NOTE | 2019-12-12 12:53 | NUR ---
dr brnenan at bedside evaluating pt.
--- NOTE | 2019-12-12 13:00 | NUR ---
LABS AT BEDSIDE .
--- NOTE | 2019-12-12 13:10 | NUR ---
PT TO CT SCAN VIA [facility].
[2019-12-12 13:13] LABS: BASOPHILS % (AUTO) 1.1 % (0.0-2.0); EOSINOPHILS # (AUTO) 0.1 K/uL (0-0.4); EOSINOPHILS % (AUTO) 3.5 % (0.0-4.0); HEMATOCRIT 37.2 % (36-52); HEMOGLOBIN 12.5 g/dL (12.0-18.0); LYMPHOCYTES # (AUTO) 0.9 K/uL (2.0-11.5); LYMPHOCYTES % (AUTO) 25.2 % (20.5-51.1); MEAN CORPUSCULAR HEMOGLOBIN 36 pg (27-31); MEAN CORPUSCULAR HGB CONC 34 g/dL (33-37); MEAN CORPUSCULAR VOLUME 106.9 fL (80-94); MONOCYTES # (AUTO) 0.7 K/uL (0.8-1.0); MONOCYTES % (AUTO) 18.9 % (1.7-9.3); NEUTROPHILS # (AUTO) 1.9 K/uL (1.8-7.7); NEUTROPHILS % (AUTO) 51.3 % (42.2-75.2); PLATELET COUNT (AUTO) 165 K/uL (140-450); RED BLOOD CELL COUNT(AUTO) 3.49 MIL/uL (4.20-6.10); RED CELL DISTRIBUTION WIDTH 18.3 % (11.6-13.7); WHITE BLOOD COUNT (AUTO) 3.7 K/uL (4.8-10.8)
[2019-12-12 13:18] LABS: APPEARANCE,URINE HAZY (CLEAR); BILIRUBIN,URINE 1+ (NEGATIVE); BLOOD, URINE NEGATIVE (NEGATIVE); COLOR,URINE BROWN (YELLOW); LEUKOCYTE ESTERASE ,URINE NEGATIVE (NEGATIVE); NITRITE, URINE NEGATIVE (NEGATIVE); PH,URINE 5.5 (5.0-9.0); UGLUCOSE NEGATIVE (NEGATIVE)
--- NOTE | 2019-12-12 13:18 | NUR ---
PT BACK FROM CT SCAN VIA [facility].
[2019-12-12 13:29] LABS: BARBITURATE, URINE NEGATIVE ng/ml (NEG <=200); BENZODIAZEPINE, URINE NEGATIVE ng/mL (NEG <=200); CANNABINOID, URINE POSITIVE ng/mL (NEG <=50); COCAINE, URINE NEGATIVE ng/mL (NEG <=300); OPIATE, URINE NEGATIVE ng/mL (NEG <=2000); PHENCYCLIDINE SCREEN,URINE NEGATIVE ng/mL (NEG <=25)
[2019-12-12 13:36] LABS: ALBUMIN 3.4 g/dL (3.4-5.0); CARBON DIOXIDE 23.8 mmol/L (21-32); CREATININE 1.1 mg/dL (0.6-1.3); POTASSIUM 3.8 mmol/L (3.5-5.1)
--- NOTE | 2019-12-12 14:35 | NUR ---
DR LUO AT BEDSIDE REEVALUATING PT.
[2019-12-12 14:47] VITALS: BP 133/83
--- NOTE | 2019-12-12 14:49 | NUR ---
Patient discharged with v/s stable. Written and verbal after care instructions given and explained regarding mastoiditis. Patient alert, oriented and verbalized understanding of instructions. Ambulatory with steady gait. All questions addressed prior to discharge. ID band removed. Patient advised to follow up with PMD. Rx of augmentin and ciprofloxacin drops given. Patient educated on indication of medication including possible reaction and side effects. Opportunity to ask questions provided and answered.
== END 2019-12-12 14:49 | disposition home or self-care (01) ==
LOC: MED 12:21
DX: H70.899 Other mastoiditis and related conditions, unspecified ear (principal); R41.82 Altered mental status, unspecified; F15.10 Other stimulant abuse, uncomplicated; F12.10 Cannabis abuse, uncomplicated; F10.10 Alcohol abuse, uncomplicated
CPT/HCPCS: 36415; 70450; 80053; 80305; 81003; 82140; 83690; 85025; 99284; G0482

== ENCOUNTER 2020-09-24 20:09 | Inpatient (IN) | payer OTHER, SELFPAY ==
[~2020-09-24] VITALS: Ht 167.6 cm; Wt 79.0 kg
[2020-09-24 20:19] VITALS: BP 76/46
--- NOTE | 2020-09-24 20:19 | NUR ---
60 Y/O MALE BIBA C/O SOB X 1 DAY. PT IS DESATTING AT 66% ON RA. BP IS AT 75/43. PT DENIES ANY CHEST PAIN. PT IS PLACED NON-REBREATHER MASK @15 ML. DENIES N/V/D; SKIN IS PINK/WARM/DRY; AAOX4; LUNGS HAS CRACKLES BL; HR EVEN AND REGULAR; PT DENIES COUGH AT THIS TIME; HOB ELEVATED @90 DEGREES; BEDRAILS UP X2; BED DOWN. ER MD MADE AWARE OF PT STATUS. NKA PMH: CHF, ESOPHAGEAL VARICES, HEART BURN, HYPOTENSION
--- NOTE | 2020-09-24 20:19 | NUR ---
ROSIE ALS TO ER BED 7
--- NOTE | 2020-09-24 20:25 | NUR ---
RECEIVED A CALL FROM JEREMY PATEL, PT'S SON REGARDING UPDATE FOR THE PT.
[2020-09-24] MEDS ORDERED: NOREPINEPHRINE 4 MG/4 ML VIAL IV ONE (20:48)
[2020-09-24 20:53] LABS: BASOPHILS # (AUTO) 0.1 K/uL (0.00-0.22); BASOPHILS % (AUTO) 1.3 % (0.0-2.0); EOSINOPHILS # (AUTO) 0.1 K/uL (0-0.4); EOSINOPHILS % (AUTO) 1.2 % (0.0-4.0); HEMATOCRIT 32.3 % (36-52); LYMPHOCYTES # (AUTO) 0.7 K/uL (2.0-11.5); LYMPHOCYTES % (AUTO) 13.4 % (20.5-51.1); MEAN CORPUSCULAR HEMOGLOBIN 32 pg (27-31); MEAN CORPUSCULAR HGB CONC 34 g/dL (33-37); MEAN CORPUSCULAR VOLUME 95.1 fL (80-94); MONOCYTES # (AUTO) 0.8 K/uL (0.8-1.0); MONOCYTES % (AUTO) 14.8 % (1.7-9.3); NEUTROPHILS # (AUTO) 3.8 K/uL (1.8-7.7); NEUTROPHILS % (AUTO) 69.3 % (42.2-75.2); PLATELET COUNT (AUTO) 488 K/uL (140-450); RED BLOOD CELL COUNT(AUTO) 3.39 MIL/uL (4.20-6.10); RED CELL DISTRIBUTION WIDTH 15.3 % (11.6-13.7); WHITE BLOOD COUNT (AUTO) 5.5 K/uL (4.8-10.8)
[2020-09-24] MEDS: NOREPINEPHRINE 8 MG in DEXTROSE 5% 250 ML IV PRN ×2 (21:00→23:09)
--- NOTE | 2020-09-24 21:11 | NUR ---
EKG PERFORMED AT BEDSIDE. EKG READS SINUS RHYTHM @ 93
--- NOTE | 2020-09-24 21:19 | NUR ---
Pt placed on NRB 15L in addition to high flow d/t 79% oxygen level at this time.
[2020-09-24 21:22] LABS: ALBUMIN 2.4 g/dL (3.4-5.0); ANION GAP 15.8 (8-16); POTASSIUM 3.8 mmol/L (3.5-5.1); TOTAL BILIRUBIN 1.6 mg/dL (0.0-1.0)
[2020-09-24 21:24] LABS: CREATININE 6.5 mg/dL (0.6-1.3)
[2020-09-24] MEDS ORDERED: AMIO100T3 PO (22:28)
[2020-09-24] MEDS ORDERED: ZAR2.5 PO (22:28)
[2020-09-24] MEDS ORDERED: SACU1TAB PO (22:28)
[2020-09-24] MEDS ORDERED: POTA10TE30 PO (22:28)
[2020-09-24] MEDS ORDERED: RIOC1TAB PO (22:28)
[2020-09-24] MEDS ORDERED: LACTULOSE 20 GM/30 ML UDC PO SCH (23:00)
--- NOTE | 2020-09-24 23:10 | NUR ---
Patient will be admitted to care of DR. MCFADDEN. Admited to ICU. Will go to room 1. Belongings list completed. Report to YUE BRUMFIELD.
[2020-09-24] MEDS ORDERED: PIPER/TAZO 2.25GM/D5W PREMIX 50 ML IV SCH (23:12)
--- NOTE | 2020-09-24 23:45 | NUR ---
ADMITTED THIS 60 YEAR OLD MALE PATIENT FROM ER PER FOREIGN ALERT AND ORIENTED, ABLE MOVE LIMBS FREELY;WITH THE CHIEF COMPLAINT OF SHORTNESS OF BREATHING WITH THE ADMITTING DIAGNOSIS OF CHF EXACERBATION.ASSISTED IN ICU BED 1, HOOKED TO DIRECTOR INTERNAL AUDIT, SCOPE SHOWS ON SINUS RHYTHM WITH BBB HR 92/MIN. ON LEVOPHED DRIP AT 18 MCG/MIN VIA G 20 IV CANNULA ON LEFT WRIST; PATENT AND INTACT. VENTILATING THRU BIPAP AT 100% FIO2 SO2 89 TO 90% WITH SOB ON EXERTION.
[2020-09-25] VITALS (24 sets, daily range): BP systolic 90–137; BP diastolic 57–75
--- NOTE | 2020-09-25 00:10 | NUR ---
MRSA SCREENING DONE; SPECIMEN SENT TO LAB.
[2020-09-25] MEDS ORDERED: POTASSIUM CHLORIDE 10 MEQ TABER PO PRN (00:15)
[2020-09-25] MEDS ORDERED: MAG SULF 2000 MG/WATER PREMIX 50 ML IV PRN (00:15)
[2020-09-25] MEDS ORDERED: ONDANSETRON 4 MG/2 ML VIAL IVP PRN (00:15)
[2020-09-25] MEDS ORDERED: NACL 0.9% 1,000 ML IV SCH (00:15)
[2020-09-25] MEDS ORDERED: KCL 20 MEQ/WATER INJ PREMIX 200 ML IV PRN (00:15)
[2020-09-25] MEDS ORDERED: MAGNESIUM OXIDE 400 MG TAB PO PRN (00:15)
--- NOTE | 2020-09-25 00:30 | NUR ---
DR. LUO (ER MD) IN AND HE INSERTED CENTRAL LINE TO THE PATIENT AFTER THE SAID PROCEDURE WAS EXPLAINED TO THE PATIENT AND CONSENT WAS SIGNED BY THE PATIENT HIMSELF; TRIPLE LUMEN CATHETER WAS SUCCESSFULLY INSERTED ON PATIENT'S RIGHT FEMORAL PER MD NO NEED TO CHECK IT BY CHEST XRAY AND CAN BE USE ALREADY.
--- NOTE | 2020-09-25 00:52 | NUR ---
APPROX 2320 FOLLOW UP ABG RESULTS REPORTED TO ER . PT WAS PLACED ON NIV. APPROX 2350 PT PLACED ON BIPAP 16/10 f16 100% AND TRANSPORTED TO ICU 1. PT TOLERATED TRANSPORT WELL. BIPAP ALARMS ON AND AUDIBLE AND PLUGGED INTO RED OUTLET WILL CONTINUE TO MONITOR
[2020-09-25] MEDS: ALBUTEROL SULFATE/IPRATROPIU 3 ML SOL IH SCH ×2 (01:13→19:45)
[2020-09-25] MEDS ORDERED: PIPERACILLIN/TAZOBACTAM 2.25 GM VIAL IV ONE (02:23)
--- NOTE | 2020-09-25 03:52 | NUR ---
PT REMAINS ON BIPAP AND IS SLEEPING W/ NO DISTRESS NOTED. PT REMAINS ON 26/01 f16 100% W/ ALARMS ON AND AUDIBLE. BIPAP REMAINS PLUGGED INTO RED OUTLET. HFNC REMAINS AT BEDSIDE ON STDBY. PT APPEARS TO BE TOLERATING WELL WILL CONTINUE TO MONITOR.
[2020-09-25] MEDS ORDERED: PIPERACILLIN/TAZOBACTAM 2.25 GM in DEXTROSE 5% 50 ML IV SCH (05:00)
[2020-09-25] MEDS ORDERED: NOREPINEPHRINE 4 MG/4 ML VIAL IV ONE (05:03)
[2020-09-25] MEDS: NOREPINEPHRINE 8 MG in DEXTROSE 5% 250 ML IV PRN ×2 (05:13→14:15)
--- NOTE | 2020-09-25 07:30 | NUR ---
Report received from [place] RN for continuity of care. Pt A&Ox4. Pt sinus tachycardiac on monitor. On Bipap Fio2 100%, Rate 16. Lung sounds clear. Heart sounds heard S1 and S2. IV Sites L wrist 20 G and R Upper Arm 20G both intact, patent, good blood return and R femoral Central Line infusing Levophed 16mcg/hr, and NS 80 ml/hr, intact and patent. Skin warm and dry. Skin intact. Yusuf catheter noted. Will continue to monitor.
--- NOTE | 2020-09-25 08:19 | NUR ---
RT CALLED TO BEDSIDE TO REPLACE BIPAP MASK RN REMOVED TO FEED PATIENT, SPO2 IN THE 60'S, MASK REPLACED AND SETTINGS ADJUSTED TO IMPROVE SPO2.
--- NOTE | 2020-09-25 08:30 | NUR ---
RECEIVED CALL FROM PT'S FATHER JEREMY PATEL. UPDATED ON PT STATUS. ALL QUESTIONS AND CONCERNS ANSWERED AT THIS TIME.
--- NOTE | 2020-09-25 08:54 | NUR ---
DC PLANNIN YRS OLD MALE PATIENT WAS ADMITTED FROM HOME WITH A DX OF ACUTE CHF EXACERBATION. PT HAS A HISTORY OF LIVER CIRRHOSIS ,HEP C, CHF AND COPD. CXR SHOWED PATCHY BIBASILAR CONSOLIDATION AND ATELECTASIS, MODERATE CARDIOMEGALY AND MILD PULMONARY VASCULAR CONGESTION. RAPID COVID TEST NEGATIVE. ON BIPAP FIO2 100% SATING 85. ON LEVOPHED DRIP, IVF, IV ABX ZOSYN . CONSULTED WITH TIRE MECHANIC PULMO. DC PLAN PER PATIENT RESPONSE TO THE TREATMENT. CM TO FOLLOW
--- NOTE | 2020-09-25 08:58 | NUR ---
PT'S HOME MEDICATIONS GIVEN TO PHARMACY
[2020-09-25] MEDS ORDERED: DOCUSATE SODIUM 100 MG GELCAP PO SCH (09:00)
--- NOTE | 2020-09-25 09:00 | NUR ---
PT GIVEN BREAKFAST, DESATURATING TO 60'S. RT CALLED TO BEDSIDE.
--- NOTE | 2020-09-25 09:07 | NUR ---
PATIENT HAS BEEN SCREENED AND CATEGORIZED MODERATE NUTRITION RISK. PATIENT WILL BE SEEN WITHIN 3-5 DAYS OF ADMISSION. 09/27/20 09/29/[address]
--- NOTE | 2020-09-25 09:28 | NUR ---
VQ SCAN BEING PERFORMED AT BEDSIDE
[2020-09-25 09:35] LABS: BASOPHILS # (AUTO) 0.1 K/uL (0.00-0.22); BASOPHILS % (AUTO) 1.2 % (0.0-2.0); EOSINOPHILS # (AUTO) 0.1 K/uL (0-0.4); EOSINOPHILS % (AUTO) 1.1 % (0.0-4.0); HEMATOCRIT 40.3 % (36-52); HEMOGLOBIN 13.6 g/dL (12.0-18.0); LYMPHOCYTES # (AUTO) 0.6 K/uL (2.0-11.5); LYMPHOCYTES % (AUTO) 6.1 % (20.5-51.1); MEAN CORPUSCULAR HEMOGLOBIN 32 pg (27-31); MEAN CORPUSCULAR HGB CONC 34 g/dL (33-37); MEAN CORPUSCULAR VOLUME 94.4 fL (80-94); MONOCYTES # (AUTO) 0.9 K/uL (0.8-1.0); NEUTROPHILS # (AUTO) 8.7 K/uL (1.8-7.7); NEUTROPHILS % (AUTO) 82.6 % (42.2-75.2); PLATELET COUNT (AUTO) 573 K/uL (140-450); RED BLOOD CELL COUNT(AUTO) 4.27 MIL/uL (4.20-6.10); RED CELL DISTRIBUTION WIDTH 14.9 % (11.6-13.7); WHITE BLOOD COUNT (AUTO) 10.5 K/uL (4.8-10.8)
--- NOTE | 2020-09-25 09:45 | NUR ---
VQ SCAN AT BEDSIDE, RT ASSISTED WITH REMOVAL OF BIPAP AND SCAN, PT UNABLE TO COMPLETE FULL 5 MIN INHALATION, SPO2 50%, RETURNED TO BIPAP AND SETTING NOW 16 18/ 100 1.20 RISE 3, WITH SPO2 IMPROVMENT TO 70-73% DURING THE VQ SCAN.
[2020-09-25 09:59] LABS: ALBUMIN 2.4 g/dL (3.4-5.0); CARBON DIOXIDE 29.8 mmol/L (21-32); POTASSIUM 3.8 mmol/L (3.5-5.1); TOTAL BILIRUBIN 1.9 mg/dL (0.0-1.0)
[2020-09-25] MEDS ORDERED: PIPER/TAZO 2.25GM/D5W PREMIX 50 ML IV SCH (10:00)
[2020-09-25] MEDS: PIPERACILLIN/TAZOBACTAM 2.25 GM in DEXTROSE 5% 50 ML IV SCH ×2 (10:07→17:58)
[2020-09-25 10:10] LABS: CREATININE 6.2 mg/dL (0.6-1.3)
--- NOTE | 2020-09-25 11:11 | NUR ---
DR AGUILERA AT BEDSIDE EXAMINING PT
[2020-09-25] MEDS ORDERED: TPN PER PHARMACY MC PRN (11:25)
[2020-09-25] MEDS ORDERED: PATIENTS OWN TABLET PO SCH (11:27)
[2020-09-25] MEDS ORDERED: VANCOMYCIN 1GM/DEXT 5% PREMIX 200 ML IV ONE (11:40)
[2020-09-25] MEDS ORDERED: VANCOMYCIN PER PHARMACY MC PRN (11:40)
[2020-09-25] MEDS ORDERED: DOCUSATE 100 MG/10 ML UDC PO PRN (11:40)
[2020-09-25 12:00] LABS: PHOSPHORUS 7.7 mg/dL (2.5-4.9)
--- NOTE | 2020-09-25 12:00 | NUR ---
TECH AT BEDSIDE PERFORMING ULTRASOUND
[2020-09-25] MEDS ORDERED: hePARIN / DEXT 5% PREMIX 250 ML IV SCH (12:10)
[2020-09-25] MEDS ORDERED: HEPARIN PER PHARMACY MC PRN (12:10)
[2020-09-25] MEDS ORDERED: DEXTROSE 50% 50 ML SYR IVP PRN (12:55)
[2020-09-25] MEDS ORDERED: ALBUMIN HUMAN 25% 100 ML IV SCH (13:00)
[2020-09-25] MEDS: MIDODRINE 5 MG TAB PO SCH ×2 (13:00→19:00)
[2020-09-25] MEDS ORDERED: FUROSEMIDE 100 MG/10 ML VIAL IV SCH (13:30)
--- NOTE | 2020-09-25 13:55 | NUR ---
CALL MADE TO PICC RN, SPOKE WITH KACY. ETA IS 30MINS.
--- NOTE | 2020-09-25 14:06 | NUR ---
DR HARRIS AT BEDSIDE EXAMINING PT
--- NOTE | 2020-09-25 14:55 | NUR ---
DR MCFADDEN AT BEDSIDE EXAMINING PT
--- NOTE | 2020-09-25 15:00 | NUR ---
DR NIKI CRYSTAL INSERTED [facility] CATHETER.
--- NOTE | 2020-09-25 15:30 | NUR ---
EFRAIN PICC LINE INSERTED BY KACY BRUMFIELD
--- NOTE | 2020-09-25 16:00 | NUR ---
ULTRASOUND BEING PERFORMED AT BEDSIDE
--- NOTE | 2020-09-25 17:00 | NUR ---
PT TAKEN TO CT SCAN VIA GURNEY ACCOMPANIED BY RN, RT AND TECH.
[2020-09-25 18:26] LABS: BARBITURATE, URINE NEGATIVE ng/ml (NEG <=200); BENZODIAZEPINE, URINE NEGATIVE ng/mL (NEG <=200); CANNABINOID, URINE NEGATIVE ng/mL (NEG <=50); COCAINE, URINE NEGATIVE ng/mL (NEG <=300); OPIATE, URINE POSITIVE ng/mL (NEG <=2000); PHENCYCLIDINE SCREEN,URINE NEGATIVE ng/mL (NEG <=25)
--- NOTE | 2020-09-25 19:08 | NUR ---
REPORT GIVEN TO GABRIELA RN FOR CONTINUITY OF CARE
--- NOTE | 2020-09-25 19:15 | NUR ---
ASSUMED RESPONSIBILITY OF CARE AT THIS TIME
[2020-09-25] MEDS: FAT EMULSION 20% IV SCH ×3 (20:00)
[2020-09-25] MEDS: AMINO ACIDS 8.5% IV SCH ×3 (20:00)
[2020-09-25] MEDS: DEXTROSE 50% IV SCH ×3 (20:00)
[2020-09-25] MEDS: BLOOD GLUCOSE MONITORING 1 DEV DEV MC SCH ×2 (20:28→23:46)
[2020-09-25] MEDS ORDERED: VANCOMYCIN 1,000 MG in DEXTROSE 5% 250 ML IV SCH (21:00)
--- NOTE | 2020-09-25 21:15 | NUR ---
PT COMPLAINING OF ANXIETY, REQUESTING MORPHINE. STATED THAT DR TOLD HIM HE COULD HAVE A MORPHINE. PAGED DR NGUYEN AT THIS TIME. NEW ORDERS OBTAINED AND IMPLEMENTED.
[2020-09-25] MEDS ORDERED: DEXMEDETOMIDINE HCL 400 MCG in NACL 0.9% 96 ML IV PRN (21:20)
[2020-09-25] MEDS: DEXMEDETOMIDINE HCL 400 MCG in NACL 0.9% 96 ML IV PRN (21:45)
[2020-09-26] VITALS (35 sets, daily range): BP systolic 76–148; BP diastolic 21–86
[2020-09-26] MEDS: ALBUTEROL SULFATE/IPRATROPIU 3 ML SOL IH SCH ×3 (01:51→19:00)
[2020-09-26] MEDS: PIPERACILLIN/TAZOBACTAM 2.25 GM in DEXTROSE 5% 50 ML IV SCH ×3 (02:00→17:16)
[2020-09-26] MEDS: BLOOD GLUCOSE MONITORING 1 DEV DEV MC SCH ×3 (05:39→18:00)
[2020-09-26 05:58] LABS: BASOPHILS # (AUTO) 0.1 K/uL (0.00-0.22); BASOPHILS % (AUTO) 0.6 % (0.0-2.0); EOSINOPHILS % (AUTO) 0.2 % (0.0-4.0); HEMATOCRIT 35.9 % (36-52); HEMOGLOBIN 11.9 g/dL (12.0-18.0); LYMPHOCYTES # (AUTO) 0.6 K/uL (2.0-11.5); LYMPHOCYTES % (AUTO) 4.3 % (20.5-51.1); MEAN CORPUSCULAR HEMOGLOBIN 32 pg (27-31); MEAN CORPUSCULAR HGB CONC 33 g/dL (33-37); MEAN CORPUSCULAR VOLUME 96.4 fL (80-94); MONOCYTES # (AUTO) 1.1 K/uL (0.8-1.0); MONOCYTES % (AUTO) 8.5 % (1.7-9.3); NEUTROPHILS # (AUTO) 11.1 K/uL (1.8-7.7); NEUTROPHILS % (AUTO) 86.4 % (42.2-75.2); PLATELET COUNT (AUTO) 525 K/uL (140-450); RED BLOOD CELL COUNT(AUTO) 3.73 MIL/uL (4.20-6.10); RED CELL DISTRIBUTION WIDTH 15.3 % (11.6-13.7); WHITE BLOOD COUNT (AUTO) 12.8 K/uL (4.8-10.8)
[2020-09-26 06:06] LABS: ALBUMIN 2.6 g/dL (3.4-5.0); ANION GAP 19.2 (8-16); CARBON DIOXIDE 28.1 mmol/L (21-32); POTASSIUM 4.3 mmol/L (3.5-5.1); TOTAL BILIRUBIN 2.1 mg/dL (0.0-1.0)
[2020-09-26 06:09] LABS: CREATININE 6.4 mg/dL (0.6-1.3)
[2020-09-26] MEDS: MIDODRINE 5 MG TAB PO SCH ×3 (06:12→19:00)
[2020-09-26 06:16] LABS: CHOL/HDL RATIO 4.9 (1-4.5); MAGNESIUM 1.9 mg/dL (1.8-2.4); PHOSPHORUS 8.1 mg/dL (2.5-4.9)
--- NOTE | 2020-09-26 06:53 | NUR ---
PAGEEnrike ASHBY AT THIS TIME.
--- NOTE | 2020-09-26 06:56 | NUR ---
DR NGUYEN RETURNED CALL AT THIS TIME. NOTIFIED MD OF PATIENTS WISHES TO CHANGE CODE STATUS TO DNR AND BE PLACED ON MORPHINE DRIP. STATED THAT I SHOULD NOT REPORT THIS INFORMATION TO "NIGHTSHIFT TEAM," AND TO RE-PAGE THE EXCHANGE AFTER [address] MCFADDEN. WILL ENDORSE TO DAYSHIFT FOR FOLLOW-UP.
--- NOTE | 2020-09-26 07:12 | NUR ---
PAGED EXCHANGE AGAIN AT THIS TIME. AWAITING CALL-BACK.
--- NOTE | 2020-09-26 07:40 | NUR ---
PT OXYGEN SATURATION 44%, ON BIPAP. RT NOTIFIED AND AWARE.
--- NOTE | 2020-09-26 08:28 | NUR ---
RECEIVED CALL FROM DR AGUILERA, NOTIFIED THAT PT'S TROPONIN 0.209 AND THAT PT STATES HE "WANTS TO AND THE MORPHINE SHOT." DR AGUILERA STATED HE WILL COME IN AND TALK WITH THE PT.
--- NOTE | 2020-09-26 09:00 | NUR ---
DR HARRIS AT BEDSIDE EXAMINING PT
[2020-09-26] MEDS ORDERED: DOBUTamine 500 MG/D5W PREMIX 250 ML IV SCH (09:10)
[2020-09-26] MEDS: DEXMEDETOMIDINE HCL 400 MCG in NACL 0.9% 96 ML IV PRN ×4 (09:11→23:58)
--- NOTE | 2020-09-26 09:24 | NUR ---
PT RECEIVING DIALYSIS AT THIS TIME
[2020-09-26] MEDS: VASOPRESSIN 20 UNITS in NACL 0.9% 250 ML IV SCH ×2 (09:45→23:59)
[2020-09-26] MEDS: NOREPINEPHRINE 8 MG in DEXTROSE 5% 250 ML IV PRN ×2 (10:16→15:12)
[2020-09-26] MEDS ORDERED: ALBUMIN HUMAN 25% 100 ML IV SCH (11:00)
--- NOTE | 2020-09-26 11:35 | NUR ---
DR HAMILTON AT BEDSIDE EXAMINING PT
--- NOTE | 2020-09-26 12:24 | NUR ---
3L OF FLUID OUT FROM DIALYSIS
[2020-09-26] MEDS ORDERED: HEPARIN PER PHARMACY MC PRN (14:35)
--- NOTE | 2020-09-26 15:12 | NUR ---
09/26/20 RD INITIAL ASSESSMENT COMPLETED PLEASE REFER TO NUTRITION ASSESSMENT UNDER CARE ACTIVITY FOR ESTIMATED NUTRITIONAL NEEDS. 1. CONTINUE NPO MEDICALLY APPROPRIATE 2. CONTINUE TPN. CURRENT TPN IS D15%, AA 3.25%, LIPIDS 10% 100 ML @ 60 ML/HR -THIS IS PROVIDING 1021 KCAL AND 46.8 GM OF PROTEIN/DAY. 3. CONSIDER GRADUALLY INCREASING TPN TO MEET 75% OF ESTIMATED NEEDS 4. RD TO FOLLOW-UP 2-3 DAYS, HIGH RISK CHANDRIKA COLLIER RD
--- NOTE | 2020-09-26 15:15 | NUR ---
PT STATING "I WANT TO " STATES DOES NOT WANT TO CHEST COMPRESSIONS, WANTS COMFORT MEASURES ON A MORPHINE DRIP. CALLED DR AGUILERA. ORDERS FOR DNR/DNI.
--- NOTE | 2020-09-26 17:00 | NUR ---
HEPARIN DRIP STARTED
[2020-09-26] MEDS: hePARIN / DEXT 5% PREMIX 250 ML IV SCH (17:19)
--- NOTE | 2020-09-26 18:01 | NUR ---
PT STATES HE DOES NOT WANT ANY VISITORS.
--- NOTE | 2020-09-26 19:22 | NUR ---
REPORT GIVEN TO RACHNA BRUMFIELD FOR CONTINUITY OF CARE
--- NOTE | 2020-09-26 19:25 | NUR ---
RECEIVED REPORT FROM [facility] NURSE. PT ANOx4, MAKES NEEDS KNOWN, FOLLOWS SOME COMMANDS BUT PT VERY UNCOOPERATIVE. UPSET AND YELLING. PT REPORTS " I WANNA , GIVE ME A COMFORT SHOT NOW OR ELSE I WILL PULL EVERYTHING OUT!" PT ENCOURAGED TO BE COMPLIANT WITH TREATMENT AND WILL CALL THE DOCTOR FOR ORDERS. PT ON BIPAP, FI02 100%, 20/16, RATE 20. BREATHING LABORED, PT CYANOTIC AT FEET AND SOME CYANOSIS AT LIPS/FACE. RI MACKENZIE CATH, DRESSING DRY AND INTACT, NO SYMPTOMS. RIGHT FA 20G, SL. LEFT WRIST 20G, SL, BOTH NO SYMPTOMS, FLUSHED AND PATENT. LEFT UPPER ARM PICC, TPN @ 40ML/HR. RIGHT FEMORAL TLC, INFUSING DOBUTAMINE, 2.5MCG/KG/MIN, LEVOPHED 30 MCG/MIN, VASOPRESSIN 0.02UNITS/MIN, PRECEDEX 1.2MCG/KG/HR, AND HEPARIN DRIP 1400U/HR. DRY WEIGHT 78KG. GUZMÁN CATHETER IN PLACE, DRAINING CLEAR YELLOW URINE. ABDOMEN LARGE, FIRM, AND ROUND. CONTACT PRECAUTIONS IN PLACE. BED LOCKED AND IN LOWEST POSITION, SIDE RAILS UP. WILL CONTINUE TO MONITOR.
--- NOTE | 2020-09-26 19:35 | NUR ---
DR. AGUILERA UPDATED ON PATIENT CONDITION. MADE AWARE THAT PATIENT IS THREATENING TO KILL HIMSELF AND WANTING TO , PT STATES "GIVE ME A COMFORT A SHOT OR I WILL YANK ALL OF THIS STUFF OFF AND I WILL ! I WANT TO !" PT REFUSING ALL TREATMENT AND PT PULLED OFF BIPAP MASKS TWICE ALREADY. DR. AGUILERA AWARE, NEW IVP MORPHINE PRN ORDER RECEIVED, WILL CARRY OUT.
[2020-09-26] MEDS: MORPHINE SULFATE 2 MG/ML SYR IVP PRN ×2 (19:45→23:45)
[2020-09-26] MEDS ORDERED: MULTIVITAMIN IV SCH ×4 (20:00)
[2020-09-26] MEDS ORDERED: DEXTROSE IV SCH ×4 (20:00)
[2020-09-26] MEDS ORDERED: [UNRECOGNIZED DRUG - OTHER] IV SCH ×4 (20:00)
[2020-09-26] MEDS ORDERED: AMINO ACIDS IV SCH ×4 (20:00)
--- NOTE | 2020-09-26 20:15 | NUR ---
TITRATED PRESSORS FOR LOW BP, SEE IV SPREADSHEET. PT REFUSED TURNING AND REPOSITIONING. WILL ENCOURAGE REPOSITIONING AT A LATER TIME.
[2020-09-26] MEDS: FAT EMULSION 20% IV SCH ×3 (20:30)
[2020-09-26] MEDS: DEXTROSE 50% IV SCH ×3 (20:30)
[2020-09-26] MEDS: AMINO ACIDS 8.5% IV SCH ×3 (20:30)
--- NOTE | 2020-09-26 21:35 | NUR ---
UPDATED PATIENTS FATHER ON CONDITION, ANSWERED ALL QUESTIONS AND CONCERNS.
[2020-09-26] MEDS: NOREPINEPHRINE 16 MG in DEXTROSE 5% 250 ML IV PRN (21:40)
--- NOTE | 2020-09-26 23:45 | NUR ---
PRN IVP MORPHINE GIVEN. REPOSITIONED PT AND OFFLOADED PRESSURE AREAS. SAFETY MEASURES IN PLACE. WILL REASSESS FOR PAIN.
[2020-09-27] VITALS (31 sets, daily range): BP systolic 74–127; BP diastolic 45–85
[2020-09-27] MEDS: BLOOD GLUCOSE MONITORING 1 DEV DEV MC SCH ×3 (00:09→12:23)
[2020-09-27] MEDS: INSULIN LISPRO SLIDING SCALE 100 UNITS/ML VIAL SUBQ PRN ×3 (00:12→12:32)
[2020-09-27] MEDS: ALBUTEROL SULFATE/IPRATROPIU 3 ML SOL IH SCH ×3 (01:00→13:00)
--- NOTE | 2020-09-27 01:00 | NUR ---
RESTARTED HEPARIN DRIP WITH DECREASED RATE PER PROTOCOL, SEE IV SPREADSHEET
--- NOTE | 2020-09-27 01:38 | NUR ---
RECEIVED PT FROM DAY SHIFT ON BIPAP SETTING 20/16, R20, FIO2 1OO%. PT SPO2 IS LOW 80'S, B/S DIMINISHED BILATERALLY. BIPAP PLUGGED INTO THE RED OUTLET, ALARM SET AUDIBLE. PT REFUSED BOTH BREATHING TX DURING SHIFT. WILL CONTINUE TO MONITOR.
--- NOTE | 2020-09-27 01:40 | NUR ---
PT RESTING WELL, EYES CLOSED, FLACC 0. BED LOCKED AND IN LOWEST POSITION, SIDE RAILS UP, CALL LIGHT IN HAND. NO COMPLAINTS AT THIS TIME, SP02 87%. WILL CONTINUE TO MONITOR.
[2020-09-27] MEDS: PIPERACILLIN/TAZOBACTAM 2.25 GM in DEXTROSE 5% 50 ML IV SCH ×2 (02:00→10:22)
[2020-09-27] MEDS: MORPHINE SULFATE 2 MG/ML SYR IVP PRN ×3 (03:45→23:55)
--- NOTE | 2020-09-27 04:10 | NUR ---
PT OFFERED CLEANING AND REPOSITIONING. PT AGITATED AND YELLING, REFUSING CLEANING AT THIS TIME. PT REPORTS "GIVE ME MY SEDATION!" PRN PAIN MEDS JUST GIVING. WILL CONTINUE TO MONITOR.
[2020-09-27] MEDS: DEXMEDETOMIDINE HCL 400 MCG in NACL 0.9% 96 ML IV PRN ×3 (04:53→14:03)
--- NOTE | 2020-09-27 05:00 | NUR ---
RESTING WELL, PT CALM AND QUIET, EYES CLOSED. ALL VITALS WITHIN RANGE, ALL PRESSORS STILL IN PLACE, UNABLE TO TITRATE. CALL LIGHT IN HAND. BIPAP MASK IN PLACE, PT NOT ATTEMPTING TO PULL EQUIPMENT AT THIS TIME.
[2020-09-27 05:27] LABS: BASOPHILS # (AUTO) 0.1 K/uL (0.00-0.22); BASOPHILS % (AUTO) 0.7 % (0.0-2.0); EOSINOPHILS # (AUTO) 0.1 K/uL (0-0.4); EOSINOPHILS % (AUTO) 1.4 % (0.0-4.0); HEMATOCRIT 25.2 % (36-52); HEMOGLOBIN 8.5 g/dL (12.0-18.0); LYMPHOCYTES # (AUTO) 0.5 K/uL (2.0-11.5); LYMPHOCYTES % (AUTO) 5.1 % (20.5-51.1); MEAN CORPUSCULAR HEMOGLOBIN 33 pg (27-31); MEAN CORPUSCULAR HGB CONC 34 g/dL (33-37); MEAN CORPUSCULAR VOLUME 96.3 fL (80-94); MONOCYTES # (AUTO) 0.6 K/uL (0.8-1.0); MONOCYTES % (AUTO) 6.6 % (1.7-9.3); NEUTROPHILS # (AUTO) 7.8 K/uL (1.8-7.7); NEUTROPHILS % (AUTO) 86.2 % (42.2-75.2); PLATELET COUNT (AUTO) 273 K/uL (140-450); RED BLOOD CELL COUNT(AUTO) 2.62 MIL/uL (4.20-6.10); RED CELL DISTRIBUTION WIDTH 15.1 % (11.6-13.7); WHITE BLOOD COUNT (AUTO) 9.1 K/uL (4.8-10.8)
[2020-09-27 05:41] LABS: ALBUMIN 2.5 g/dL (3.4-5.0); ANION GAP 12.3 (8-16); CARBON DIOXIDE 30.4 mmol/L (21-32); MAGNESIUM 1.7 mg/dL (1.8-2.4); PHOSPHORUS 4.8 mg/dL (2.5-4.9); POTASSIUM 3.7 mmol/L (3.5-5.1); TOTAL BILIRUBIN 1.5 mg/dL (0.0-1.0)
[2020-09-27 05:55] LABS: CREATININE 4.4 mg/dL (0.6-1.3)
[2020-09-27] MEDS: NOREPINEPHRINE 16 MG in DEXTROSE 5% 250 ML IV PRN (06:06)
--- NOTE | 2020-09-27 06:50 | NUR ---
PT REFUSING SCHEDULED PO MED, REPORTS "DONT WAKE ME UP FOR ANYTHING UNLESS ITS THE DOCTOR!" PT DENIES PAIN AT THIS TIME. BIPAP IN PLACE, PRESSORS, PRECEDEX, TPN, AND HEPARIN DRIP INFUSING. WILL ENDORSE TO DAYSHIFT.
[2020-09-27] MEDS: MIDODRINE 5 MG TAB PO SCH ×2 (07:00→12:58)
--- NOTE | 2020-09-27 07:05 | NUR ---
RCV'D PT ON BIPAP WITH CHARTED SETTINGS. PATIENT'S SPO2 IS 79% ON 100% FIO2. ROBOTIC MAINTENANCE TECHNICIAN NURSE AND MD ROWE AWARE OF PT'S CONDITION. HHN TX GIVEN INLINE WITH NO ADVERSE REACTION AND WITH LITTLE IMPROVEMENT. BREATH SOUNDS DIMINISHED. BIPAP CONNECTED TO RED OUTLET,ALARMS AUDIBLE. AMBU BAG AT BEDSIDE. NO DISTRESS NOTED. WILL CONTINUE TO MONITOR PATIENT.
--- NOTE | 2020-09-27 07:23 | NUR ---
ENDORSED CARE TO DAYSHIFT NURSE. PT SEEN WITH EYES CLOSED, CONNECTED TO CONTINUOUS MONITORING, ALL SAFETY MEASURES IN PLACE.
--- NOTE | 2020-09-27 07:23 | NUR ---
RECEIVED REPORT FOR BUSINESS INFORMATION MANAGER NURSE, RACHNA BRUMFIELD, FOR CONTINUITY OF CARE. PATIENT IS AOX4, RESTING IN BED, STATING " I JUST WANT TO , I'M ONLY A BURDEN TO MY FATHER". DRY WEIGHT 78 KG. SR-ST ON MONITOR. ON BIPAP FIO2 100, IPAP 20, EPAP 16, RATE 20, SPO2 85. IVS CLEAN DRY AND INTACT, RFA 20G INFUSING NS AT 5ML TKO AND HEPARIN AT 1200 UNITS/HR, LW 20G SALINE LOCKED, EFRAIN PICC INFUSING RPN AT 60ML/HR, PRECEDEX AT 1.2 MCG/KG/HR, RIGHT FEMORAL INFUSING LEVOPHED 16 MG AT 30 MCG/MIN, VASOPRESSIN 0.03 UNITS/MIN, AND DOBUTAMINE AT 4.5 MCG/KG/MIN. ACCU CHECK Q6H, LAST ACCU CHECK 199, 2 UNITS COVERED BY BUSINESS INFORMATION MANAGER. NPO EXCEPT MEDS. GUZMÁN INSERTED ON 09/25, 1500 OUTPUT. LEMON PICKER, PULSE OXIMETER, AND SAFETY MEASURES IN PLACE. BED IN LOW POSITION, BED LOCKED, HEAD OF BED AT 30 DEGREES. WILL CONTINUE TO MONITOR.
--- NOTE | 2020-09-27 07:51 | NUR ---
RECEIVED CRITICAL LAB PTT 61, WITHIN THERAPEUTIC RANGE PER RX PROTOCOL, NO CHANGE IN RATE, PRIMARY RN EMILIA MADE AWARE.
--- NOTE | 2020-09-27 08:45 | NUR ---
DR. SOHAN BLUNT. UPDATED ON PATIENT CONDITION AND STATUS. AWARE THAT PATIENT DOES NOT WANT TREATMENT AND THAT PATIENT WANTS TO BE ON COMFORT CARE.
--- NOTE | 2020-09-27 09:00 | NUR ---
PATIENT IS AOX4. REFUSING HEMODIALYSIS. CONTINUOUSLY ASKING FOR HIS DOCTOR. STATING, I DO NOT WANT TREATMENT, I WANT TO JUST GET MORPHINE AND ". WILL CONTINUE TO MONITOR.
--- NOTE | 2020-09-27 09:10 | NUR ---
CHECKED ON PATIENT. PATIENT SAYING HE WANTS TO TALK WITH DR. TOLD PATIENT ONCE DR COMES HE WILL COME IN TO TALK WITH HIM. OCTAVIANO VÁZQUEZ AWARE. WILL CONTINUE TO MONITOR.
--- NOTE | 2020-09-27 09:15 | NUR ---
RECEIVED CALL BACK FROM DR HAMILTON AND MADE AWARE THAT PATIENT REFUSED DIALYSIS, EDUCATION PROVIDED, PATIENT INSISTED HE DOESN'T WANT IT. DR HAMILTON WAS AWARE, AND WILL SEE PATIENT SHE IS ROUNDING. HOLD DIALYSIS AND RESPECT PATIENT'S WISH.
--- NOTE | 2020-09-27 09:16 | NUR ---
ANGEL PROOF TESTER MADE AWARE THAT PATIENT REFUSED HD TODAY.
--- NOTE | 2020-09-27 09:50 | NUR ---
RECEIVED CALL PATIENT'S FATHER JEREMY, UPDATED JEREMY WITH PATIENT'S CURRENT CONDITION, AND ANSWERED ALL HIS QUESTIONS. JEREMY WAS AWARE THAT PATIENT REFUSED HD TODAY, AND LACK OF MOTIVATION ON PARTICIPATING IN ANY TREATMENT.
--- NOTE | 2020-09-27 11:15 | NUR ---
CHECKING ON PATIENT. BIPAP CHECK. PT IS ASLEEP. PT TOLERATING WELL. NO DISTRESS NOTED. SPO2 INCREASED TO 92%. WILL CONTINUE TO MONITOR.
[2020-09-27] MEDS ORDERED: VANCOMYCIN 1,000 MG in DEXTROSE 5% 250 ML IV SCH (12:30)
[2020-09-27] MEDS: hePARIN / DEXT 5% PREMIX 250 ML IV SCH (12:45)
[2020-09-27] MEDS: VASOPRESSIN 20 UNITS in NACL 0.9% 250 ML IV SCH (12:56)
--- NOTE | 2020-09-27 12:59 | NUR ---
PATIENT REFUSED MIDODRINE. CONTINUES TO ASK FOR DOCTOR. WILL CONTINUE TO MONITOR.
--- NOTE | 2020-09-27 13:13 | NUR ---
PT ASLEEP TOLERATING BIPAP WELL.
--- NOTE | 2020-09-27 14:15 | NUR ---
PATIENT REFUSED BLOOD DRAW FOR PTT. EDUCATION PROVIDED, PATIENT INSISTED NOT WANTING ANYTHING TO BE DONE. WILL NOTIFY MD. PATIENT IS RESTING ON BED. SAFETY MEASURES IN PLACE.
--- NOTE | 2020-09-27 15:00 | NUR ---
DR ALE BANEGAS. AWAITING CALL BACK.
--- NOTE | 2020-09-27 15:10 | NUR ---
CALLED BACK. UPDATED ON PATIENT STATUS AND CONDITION. AWARE THAT PATIENT IS REFUSING TREATMENT AND WANTS TO BE PLACED ON COMFORT CARE. WILL CONTINUE TO MONIOR.
--- NOTE | 2020-09-27 15:16 | NUR ---
BIPAP CHECK. PT ASLEEP. TOLERATING BIPAP WELL. NO DISTRESS NOTED. WILL CONTINUE TO MONITOR.
--- NOTE | 2020-09-27 15:19 | NUR ---
RECEIVED CALL FROM FATHER JEREMY, UPDATED HIM WITH PATIENT'S CURRENT CONDITION, ANSWERED ALL HIS QUESTIONS, JEREMY WAS AWARE PATIENT REFUSED LAB DRAW.
--- NOTE | 2020-09-27 15:30 | NUR ---
DR.SIRI BLUNT. UPDATED ON PATIENT STATUS AND CONDITION. AWARE PATIENT WISHES TO BE ON COMFORT CARE. WILL CONTINUE TO MONITOR.
[2020-09-27] MEDS: MORPHINE SULFATE 50 MG in NACL 0.9% 45 ML IV PRN ×2 (16:24→19:12)
--- NOTE | 2020-09-27 16:24 | NUR ---
INITIATED COMFORT MEASURES. MORPHINE DRIP STARTED AT 2 ML/HR. WILL CONTINUE TO MONITOR.
--- NOTE | 2020-09-27 16:45 | NUR ---
GOT ORDER FROM MD ROWE TO REMOVE BIPAP AND PLACE PATIENT ON OXYGEN FOR COMFORT CARE. PT ON 6 L NC HUMIDIFIED. RN KATHIE AWARE. MD MCFADDEN ALSO AWARE AND AT BEDSIDE. PT VERBALIZING I WANT MORPHINE. RN AWARE AND IN ROOM. WILL CONTINUE TO MONITOR PATIENT.
--- NOTE | 2020-09-27 16:50 | NUR ---
DR. BOGDAN BLUNT. UPDATED ON PATIENT STATUS AND CONDITION. AWARE PATIENT IS ON COMFORT CARE.
--- NOTE | 2020-09-27 17:00 | NUR ---
INCREASED TO 4 ML/HR DUE TO RESPIRATORY DISTRESS. WILL CONTINUE TO MONITOR.
--- NOTE | 2020-09-27 17:30 | NUR ---
INCREASED MORPHINE DRIP TO 6 ML/HR FOR TACHYPNEA AND TACHYCARDIA. WILL CONTINUE TO MONITOR.
--- NOTE | 2020-09-27 18:00 | NUR ---
INCREASED MORPHINE DRIP TO 8 ML/HR FOR TACHYPNEA AND TACHYCARDIA. WILL CONTINUE TO MONITOR.
--- NOTE | 2020-09-27 19:19 | NUR ---
ENDORSED CARE TO REGIONAL PROJECT MANAGER NURSE, RACHNA BRUMFIELD, FOR CONTINUITY OF CARE.
--- NOTE | 2020-09-27 19:38 | NUR ---
RECEIVED REPORT FROM [facility] NURSE. PT AWAKE AND ALERT IN BED, SCREAMING AND VERY UNCOOPERATIVE. PT YELLING "I NEED THE MORPHINE, YOU ARE NOT GRANTING A DYING MAN's WISHES". PT MADE AWARE THAT HE IS ALREADY ON MORPHINE DRIP. ON COMFORT MEASURES ONLY. PT STILL UNCOMFORTABLE, SCREAMING AND CRYING. WILL ADMINISTER PRN SUPPORTIVE MEDS. PT ON NASAL CANNULA 15L. [facility] MACKENZIE CATH, INTACT. RIGHT FEMORAL CENTRAL LINE IN PLACE, LEFT UPPER ARM PICC LINE WITH MORPHINE DRIP AT 8MG/HR. RIGHT FA 20G, AND LEFT WRIST 20G, BOTH SL. GUZMÁN CATHETER IN PLACE, DRAINING BY GRAVITY WITH CLEAR YELLOW URINE. BED LOCKED AND IN LOWEST POSITION, SIDE RAILS UP. OFFERED PT ASSISTANCE WITH REPOSITIONING, REFUSED. CALL LIGHT IN HAND. CONTACT AND FALL PRECAUTIONS IN PLACE. WILL CONTINUE TO MONITOR. Addendum: 09/27/20 at 2001 by Eneida Peterson RN 6L nasal cannula
[2020-09-27] MEDS ORDERED: DEXTROSE 20% IV SCH ×3 (20:00)
[2020-09-27] MEDS ORDERED: AMINO ACIDS IV SCH ×3 (20:00)
[2020-09-27] MEDS ORDERED: FAT EMULSION 20% IV SCH ×3 (20:00)
--- NOTE | 2020-09-27 21:35 | NUR ---
PT's BROTHER SANG CALLED FOR PATIENT UPDATE. PER PT, REQUESTS THAT NO ONE EXCEPT HIS FATHER, JEREMY, IS ABLE TO RECEIVE ANY UPDATES. DID NOT PROVIDE PT STATUS OR INFO. PT MADE AWARE.
--- NOTE | 2020-09-27 23:15 | NUR ---
PT COMPLAINING OF PHLEGM IN THROAT AND UNABLE TO COUGH IT OUT. USED YANKEUR AND STILL UNABLE TO CLEAR SECRETIONS. PT ORIENTED TO CONDITION, FLUID OVERLOAD, AND CHF. CALLED RT, OFFERED NTS, PT REFUSED. ENCOURAGED DEEP BREATHING AND SOME FLUIDS, PT REFUSED BOTH. WILL CONTINUE TO MONITOR. CALL LIGHT WITHIN REACH.
[2020-09-28] VITALS (13 sets, daily range): BP systolic 53–85; BP diastolic 32–60
--- NOTE | 2020-09-28 02:52 | NUR ---
PT RESTING WELL, FLACC 0. SAFETY MEASURES IN PLACE. WILL CONTINUE TO MONITOR.
[2020-09-28] MEDS: MORPHINE SULFATE 50 MG in NACL 0.9% 45 ML IV PRN ×2 (03:33→09:51)
--- NOTE | 2020-09-28 04:22 | NUR ---
EYES CLOSED, NASAL CANNULA IN PLACE. MORPHINE DRIP INFUSING IS SINCE START OF SHIFT. OTR TRUCK DRIVER IN PLACE, SINUS TACH TO SINUS RHYTHM ON MONITOR. FLACC 0.
--- NOTE | 2020-09-28 05:15 | NUR ---
PT SEEN WITH LOUIE-MACARIO RESPIRATIONS, TAKING REALLY LONG PAUSES AND LARGE GULPS OF AIR. TURNED AND REPOSITIONED FOR COMFORT. NO COMPLAINTS AT THIS TIME.
--- NOTE | 2020-09-28 06:55 | NUR ---
PT REPOSITIONED AGAIN, PT WOKE UP AND ASKED "WHERE AM I?" REORIENTED PT TO UNIT AND PLAN. PT CLOSED EYES AND RESTING. MORPHINE AT 8MG/HR. NO GUZMÁN OUTPUT. WILL ENDORSE TO DAYSHIFT NURSE.
--- NOTE | 2020-09-28 07:01 | NUR ---
RC'D PT ON 2 L HUMIDIFIED NASAL CANNULA. PATIENT IS BREATHING LOUIE-MACARIO. PT IS IN COMFORTABLE POSITION. WILL CONTINUE TO MONITOR PATIENT.
--- NOTE | 2020-09-28 07:20 | NUR ---
RECEIVED REPORT FROM [facility] NURSE. PT IN BED. RESPONSIVE WITHDRAWS ONLY TO DEEP PAIN, NO EYE OPENING, NO VERBAL RESPONSE. FLACC 0, RESPIRATIONS ARE DEEP AND SLOW WITH EPISODES OF APNEA. ON COMFORT MEASURES ONLY. ON NASAL CANNULA 2L. CALu MANN CATH, INTACT. RIGHT FEMORAL CENTRAL LINE IN PLACE, LEFT UPPER ARM PICC LINE WITH MORPHINE DRIP AT 8MG/HR. RIGHT FA 20G, AND LEFT WRIST 20G, BOTH SL. GUZMÁN CATHETER IN PLACE, DRAINING BY GRAVITY. CALL LIGHT WITHIN REACH. CONTACT AND FALL PRECAUTIONS IN PLACE. WILL CONTINUE TO MONITOR.
--- NOTE | 2020-09-28 10:29 | NUR ---
pt's father, Josef Perry, came to visit. ppe provided
--- NOTE | 2020-09-28 11:30 | NUR ---
PT UNRESPONSIVE TO STIMULI, PUPILS FIXED AND DILATED. RESPIRATIONS SHALLOW WITH MORE FREQUENT EPISODES OF APNEA
--- NOTE | 2020-09-28 12:50 | NUR ---
BRADYCARDIC AT 20s-30s. PUPILS FIXED AND DILATED. SLOW AGONAL BREATHING.
--- NOTE | 2020-09-28 13:05 | NUR ---
ASYSTOLIC ON MONITOR, NO AUDIBLE HEARTBEAT. NO VISIBLE CHEST RISE. TIME OF 1305 PRONOUNCED BY SYSTEM ADMINISTRATION MANAGER
--- NOTE | 2020-09-28 13:20 | NUR ---
FATHER, JEREMY PATEL, NOTIFIED AND GAVE CONSENT TO RELEASE BODY TO [facility]. DR MCFADDEN NOTIFIED
--- NOTE | 2020-09-28 14:20 | NUR ---
BODY RELEASED BY [facility] WEIGHER DIOMEDES JAIN
--- NOTE | 2020-09-28 15:00 | NUR ---
CALLED [facility], PT NOT ELIGIBLE FOR DONATION. CASE# [id number]
--- NOTE | 2020-09-28 15:15 | NUR ---
CALLED [facility], WILL FISH ROD MAKER BODY WITHIN 2HRS
== END 2020-09-28 13:05 | DRG 720 ==
LOC: MED 20:09 → MMU 23:03 → MIC 23:17
PROVIDERS: ADMIT Hospitalist; ATTEND Hospitalist
PROC: 5A09457 Assistance with Respiratory Ventilation, 24-96 Consecutive Hours, Continuous Positive Airway Pressure (ICD-10-PCS; principal; 2020-09-24)
PROC: 02HV33Z Insertion of Infusion Device into Superior Vena Cava, Percutaneous Approach (ICD-10-PCS; 2020-09-24)
PROC: B548ZZA Ultrasonography of Superior Vena Cava, Guidance (ICD-10-PCS; 2020-09-24)
PROC: 5A1D70Z Performance of Urinary Filtration, Intermittent, Less than 6 Hours Per Day (ICD-10-PCS; 2020-09-25)
PROC: 02HV33Z Insertion of Infusion Device into Superior Vena Cava, Percutaneous Approach (ICD-10-PCS; 2020-09-25)
PROC: B548ZZA Ultrasonography of Superior Vena Cava, Guidance (ICD-10-PCS; 2020-09-25)
PROC: 5A1D70Z Performance of Urinary Filtration, Intermittent, Less than 6 Hours Per Day (ICD-10-PCS; 2020-09-26)
PROC: 5A1D70Z Performance of Urinary Filtration, Intermittent, Less than 6 Hours Per Day (ICD-10-PCS; 2020-09-27)
DX: A41.9 Sepsis, unspecified organism (principal); K72.00 Acute and subacute hepatic failure without coma; N17.0 Acute kidney failure with tubular necrosis; J96.21 Acute and chronic respiratory failure with hypoxia; I27.20 Pulmonary hypertension, unspecified; J18.9 Pneumonia, unspecified organism; I50.32 Chronic diastolic (congestive) heart failure; E83.39 Other disorders of phosphorus metabolism; Z66 Do not resuscitate; N18.6 End stage renal disease; E87.1 Hypo-osmolality and hyponatremia; I31.3 Pericardial effusion (noninflammatory); Z20.822 Contact with and (suspected) exposure to COVID-19; K70.31 Alcoholic cirrhosis of liver with ascites; J44.9 Chronic obstructive pulmonary disease, unspecified; B19.20 Unspecified viral hepatitis C without hepatic coma; I45.10 Unspecified right bundle-branch block; I27.81 Cor pulmonale (chronic); F10.10 Alcohol abuse, uncomplicated; Y90.9 Presence of alcohol in blood, level not specified; F15.10 Other stimulant abuse, uncomplicated; Z82.49 Family history of ischemic heart disease and other diseases of the circulatory system
CPT/HCPCS: 36415; 36600; 71045; 71275; 76770; 78582; 80053; 80202; 80305; 82140; 82803; 83036; 83605; 83735; 83880; 84100; 84300; 84484; 85025; 85379; 85610; 85730; 87040; 87081; 93005; 94640; 94660; 99285; A9153; J1644; J1815; J1940; J2270; J2543; J3370; J3490; J7030; J7060; P9046; Q9967